=== PATIENT | female | born 1950 | race Caucasian/White ===

== ENCOUNTER 2019-07-31 11:02 | Inpatient (IN) | payer MEDICAID, MEDICARE ==
[~2019-07-31] VITALS: Ht 162.6 cm; Wt 60.5 kg
[2019-07-31] MEDS ORDERED: KETOROLAC TROMETH 15 mg/ml 1ML VL IV ONE (11:15)
[2019-07-31] MEDS ORDERED: ONDANSETRON HCL 4 MG/2 ML VIAL IV ONE (11:15)
[2019-07-31 12:04] LABS: Basophils # (auto) 0.1 10 ^3/uL (0-0.2); Basophils % (auto) 0.9 % (0.0-2.0); Eosinophils # (auto) 0 10 ^3/uL (0-0.8); Eosinophils % (auto) 0.3 % (0.0-7.0); Hematocrit 44.7 % (36.0-46.0); Hemoglobin 15.5 g/dL (12.2-16.2); Lymphocytes # (auto) 1.6 10 ^3/uL (0.4-5.4); Lymphocytes % (auto) 17.3 % (10.0-50.0); Mean Corpuscular Hemoglobin 30.7 pg (28.0-32.0); Mean Corpuscular Hgb Conc. 34.6 g/dL (32.0-36.0); Mean Corpuscular Volume 88.6 fL (80.0-100.0); Monocytes # (auto) 0.4 10 ^3/uL (0-1.3); Monocytes % (auto) 4.5 % (0.0-12.0); Nucleated Red Blood Cells % 0.1 %; Platelet Count (auto) 351 10^3/uL (140-450); Red Blood Cells 5.05 10^6/uL (4.0-5.20); Red Cell Distribution Width 12.9 % (11.8-14.3); White Blood Cell 9.1 10^3/uL (4.4-10.8)
[2019-07-31 12:24] LABS: Urine Bacteria FEW /hpf (None Seen); Urine Blood Negative /uL (Negative); Urine Specific Gravity 1.007 (1.001-1.035); Urine WBC 5 /hpf (0 - 5)
[2019-07-31 12:25] LABS: Calcium 9.5 mg/dL (8.5-10.1)
[2019-07-31 12:28] LABS: Bilirubin, Total 0.5 mg/dL (0.2-1.0)
[2019-07-31 12:35] LABS: Potassium 2.9 mmol/L (3.5-5.1)
[2019-07-31] MEDS ORDERED: metroNIDAZOLE 500MG/100ML 100 ML IV ONE (12:45)
[2019-07-31] MEDS ORDERED: POTASSIUM CHL 20MEQ/100ML 100 ML IV ONE (12:45)
[2019-07-31] MEDS ORDERED: cefTRIAXone 1GM/50ML D5W 50 ML IV ONE (13:45)
[2019-07-31] MEDS ORDERED: NITROGLYCERIN 0.4 MG SL TAB SL PRN (13:45)
[2019-07-31] MEDS ORDERED: MORPHINE SULF INJ 2 MG/ML SYRINGE 1ML IV PRN (13:45)
[2019-07-31] MEDS ORDERED: chlordiazePOXIDE HCL 25 MG CAP PO PRN (14:15)
[2019-07-31] MEDS ORDERED: THIAMINE 100mg/ml INJ (200mg/2ml VIAL) IV ONE (14:15)
[2019-07-31] MEDS: metroNIDAZOLE 500MG/100ML 100 ML IV SCH ×2 (14:45→21:13)
--- NOTE | 2019-07-31 15:09 | NUR ---
Telemetry admit from ER HALEY DORSEY admitted to Telemetry unit after SBAR received. Alert and oriented x4, ambulates independently, family at bedside. Patient oriented to Kelsey Graham primary RN, unit, room, bed, and unit policies regarding patient care and visiting hours. Patient now on continuous telemetry monitoring, tele box # [[id number]]. Patient weighed by bedscale and encouraged to call if they need something. All questions and concerns addressed, patient verbalized understanding.
[2019-07-31] MEDS: chlordiazePOXIDE HCL 5 MG CAP PO SCH ×2 (18:11→23:31)
[2019-07-31] MEDS ORDERED: HYDR25TA4 PO (18:22)
[2019-07-31] MEDS ORDERED: ENAL2.5T PO (18:22)
[2019-07-31] MEDS ORDERED: PANT20TA59 PO (18:22)
--- NOTE | 2019-07-31 20:00 | NUR ---
Opening Shift Note Assumed care of patient, awake and alert. No S/S of distress/SOB or pain. Instructed on POC and to call for assist PRN, will continue to monitor for changes Q1hr and PRN.
--- NOTE | 2019-07-31 20:58 | NUR ---
PATIENT TRANSFERRED TO ROOM 293A.
[2019-07-31] MEDS: SOD CHL 0.9%/ KCL 40MEQ 1,000 ML IV SCH (21:13)
[2019-07-31] MEDS: FAMOTIDINE 20 MG TAB PO SCH (21:13)
[2019-07-31] MEDS: MORPHINE SULF INJ 2 MG/ML SYRINGE 1ML IV PRN (21:30)
[2019-07-31 22:00] VITALS: BP 148/87
[2019-08-01] MEDS: MORPHINE SULF INJ 2 MG/ML SYRINGE 1ML IV PRN ×2 (02:57→09:34)
[2019-08-01 05:00] VITALS: BP 130/85
[2019-08-01] MEDS: chlordiazePOXIDE HCL 5 MG CAP PO SCH ×4 (05:54→23:57)
[2019-08-01] MEDS: metroNIDAZOLE 500MG/100ML 100 ML IV SCH ×3 (05:54→21:35)
--- NOTE | 2019-08-01 08:00 | NUR ---
PATIENT RESTING IN BED COMFORTABLY. REPORTS PAIN AT A 3 IN HER ABDOMEN IN LLQ AT THIS TIME. PATIENT DENIES ANY N/V. UPDATED ON POC. ALL QUESTIONS ANSWERED. BED IN LOWEST LOCKED POSITION WITH CALL LIGHT WITHIN REACH.
[2019-08-01 09:00] VITALS: BP 139/92
[2019-08-01] MEDS: THIAMINE 100mg/ml INJ (200mg/2ml VIAL) IV SCH (09:33)
[2019-08-01] MEDS: FAMOTIDINE 20 MG TAB PO SCH ×2 (09:33→21:42)
[2019-08-01] MEDS: cefTRIAXone 1GM/50ML D5W 50 ML IV SCH (09:33)
[2019-08-01] MEDS: ENOXAPARIN SOD 40 MG/0.4 ML SYRINGE SC SCH (10:00)
[2019-08-01] MEDS: SOD CHL 0.9%/ KCL 40MEQ 1,000 ML IV SCH ×2 (10:12→19:45)
[2019-08-01 11:06] LABS: Basophils # (auto) 0.1 10 ^3/uL (0-0.2); Basophils % (auto) 1.2 % (0.0-2.0); Eosinophils # (auto) 0.2 10 ^3/uL (0-0.8); Eosinophils % (auto) 2.4 % (0.0-7.0); Hematocrit 40.3 % (36.0-46.0); Lymphocytes # (auto) 1.5 10 ^3/uL (0.4-5.4); Lymphocytes % (auto) 20.1 % (10.0-50.0); Mean Corpuscular Hemoglobin 31.1 pg (28.0-32.0); Mean Corpuscular Hgb Conc. 34.7 g/dL (32.0-36.0); Mean Corpuscular Volume 89.6 fL (80.0-100.0); Monocytes # (auto) 0.4 10 ^3/uL (0-1.3); Monocytes % (auto) 6.2 % (0.0-12.0); Neutrophils % (auto) 70.1 % (37.0-80.0); Platelet Count (auto) 292 10^3/uL (140-450); Red Cell Distribution Width 13.3 % (11.8-14.3); White Blood Cell 7.2 10^3/uL (4.4-10.8)
[2019-08-01 11:23] LABS: Calcium 8.9 mg/dL (8.5-10.1); Potassium 3.7 mmol/L (3.5-5.1)
[2019-08-01 11:29] LABS: Albumin 3.3 g/dL (3.4-5.0); BUN/Creatinine Ratio 10.9; Bilirubin, Total 0.4 mg/dL (0.2-1.0); Magnesium 2.5 mg/dL (1.6-2.6); Total Protein 6.9 g/dL (6.4-8.2)
[2019-08-01 13:00] VITALS: BP 151/86
[2019-08-01] MEDS: ALPRAZolam 0.25 MG TAB PO PRN (13:56)
[2019-08-01 17:00] VITALS: BP 134/89
--- NOTE | 2019-08-01 19:30 | NUR ---
Opening Shift Note Assumed care of patient, awake and alert, resting in bed. No S/S of distress/SOB or pain. Instructed on POC and to call for assist PRN, will continue to monitor for changes Q1hr and PRN. Bed is in lowest position, bed rails 2x, bed wheels locked. Call light and bedside table within reach.
--- NOTE | 2019-08-01 20:45 | NUR ---
Patient Home Medications Patients home medications were taken down to pharmacy. POM wristband placed on patient and educated to hop picker own medications upon discharge. Will notify morning shift nurse.
--- NOTE | 2019-08-01 21:05 | NUR ---
Called Hospitalist Called hospitalist regarding patients home blood pressure medications. Ordered to restart patient's home medications, orders executed.
[2019-08-01] MEDS: TEMAZEPAM 15 MG CAP PO PRN (21:43)
[2019-08-01 22:00] VITALS: BP 157/93
[2019-08-02] VITALS (7 sets, daily range): BP systolic 114–158; BP diastolic 70–98
[2019-08-02] MEDS: MORPHINE SULF INJ 2 MG/ML SYRINGE 1ML IV PRN ×2 (01:03→21:18)
--- NOTE | 2019-08-02 01:03 | NUR ---
Patient complains of pain Patient states pain level is a 7. Will medicate per MD order.
--- NOTE | 2019-08-02 01:33 | NUR ---
Pain reassessment Patient states pain level is a 2. Patient states she is comfortable. Will continue to monitor Q1 and PRN.
[2019-08-02] MEDS: metroNIDAZOLE 500MG/100ML 100 ML IV SCH ×3 (05:12→21:18)
[2019-08-02] MEDS: chlordiazePOXIDE HCL 5 MG CAP PO SCH ×3 (05:12→17:28)
[2019-08-02] MEDS: SOD CHL 0.9%/ KCL 40MEQ 1,000 ML IV SCH ×2 (05:13→15:45)
--- NOTE | 2019-08-02 07:15 | NUR ---
Opening Shift Note Assumed care of patient, awake and alert. No S/S of distress/SOB or pain. Instructed on POC and to call for assist PRN, will continue to monitor for changes Q1hr and PRN. Fall precautions in place per safety protocol.
--- NOTE | 2019-08-02 07:28 | NUR ---
Closing shift note Endorsed care to morning shift RN
[2019-08-02] MEDS ORDERED: ENALAPRIL 10 MG TAB PO SCH ×2 (10:00)
[2019-08-02] MEDS ORDERED: HYDROCHLOROTHIAZIDE 25 MG TAB PO SCH (10:00)
[2019-08-02] MEDS ORDERED: PANTOPRAZOLE 20 MG PO SCH (10:00)
[2019-08-02] MEDS: ENOXAPARIN SOD 40 MG/0.4 ML SYRINGE SC SCH (10:57)
[2019-08-02] MEDS: THIAMINE 100mg/ml INJ (200mg/2ml VIAL) IV SCH (10:58)
[2019-08-02] MEDS: cefTRIAXone 1GM/50ML D5W 50 ML IV SCH (10:59)
--- NOTE | 2019-08-02 12:00 | NUR ---
Patient BP 158/98 recheck was 156-89. Notified MD Perez regarding spike in BP, Received order for hydralazine PO 25 once. Orders read back and verified. Patient's BP reassessment was 168/116. MD Perez put in a one time order for vasotec, 5mg PO. Gave patient Vasotec and will reassess BP in an hour.
[2019-08-02] MEDS ORDERED: hydrALAZINE HCL 25 MG TAB PO ONE (13:00)
[2019-08-02] MEDS ORDERED: ENALAPRIL MALEATE 2.5 MG TAB PO ONE (14:00)
[2019-08-02] MEDS ORDERED: hydrALAZINE HCL 25 MG TAB PO PRN (14:00)
--- NOTE | 2019-08-02 15:20 | NUR ---
BP Reassessment BP reassessment was 169/97 HR 78. MD Perez notified , received one time order for metoprolol 5MG IV, Will carry out new orders and will cont to monitor patient.
[2019-08-02] MEDS ORDERED: METOPROLOL TARTRATE 1MG/1ML-5ML VIAL IV ONE (15:45)
--- NOTE | 2019-08-02 16:45 | NUR ---
Reassessed BP BP was reassessed and 151/96 HR 66. Patient is asymptomatic at this time. Will cont to monitor. No BP medication due at this time.
[2019-08-02] MEDS: ACETAMINOPHEN 500 MG TAB PO PRN (17:28)
--- NOTE | 2019-08-02 19:09 | NUR ---
Endorsed care to Night DEN Peña.
--- NOTE | 2019-08-02 19:25 | NUR ---
Opening Shift Note Assumed care of patient, awake and alert, resting in bed. Family at bedside. No S/S of distress/SOB or pain. Instructed on POC and to call for assist PRN, will continue to monitor for changes Q1hr and PRN. Bed is in lowest position, bed rails 2x, bed wheels locked. Call light and bedside table are within reach.
--- NOTE | 2019-08-02 21:18 | NUR ---
Patient complains of pain Patient states pain level is a 5. Will medicate per MD orders. Will continue to monitor patient Q1 and PRN. Patient also given sleeping medication for comfort.
[2019-08-02] MEDS: TEMAZEPAM 15 MG CAP PO PRN (21:19)
--- NOTE | 2019-08-02 21:48 | NUR ---
Pain reassessment Patient is resting in bed comfortably. Patient states pain level is a 0. Will continue to monitor Q1 and PRN.
[2019-08-03] MEDS: chlordiazePOXIDE HCL 5 MG CAP PO SCH ×5 (00:21→23:51)
[2019-08-03] MEDS: SOD CHL 0.9%/ KCL 40MEQ 1,000 ML IV SCH ×2 (01:45→11:45)
[2019-08-03] MEDS: MORPHINE SULF INJ 2 MG/ML SYRINGE 1ML IV PRN ×2 (03:32→08:09)
--- NOTE | 2019-08-03 03:32 | NUR ---
Patient complains of pain Patient states pain level is 8. Will medicate per MD order. Will monitor Q1 and PRN.
--- NOTE | 2019-08-03 04:02 | NUR ---
Patient pain reassessment Patient states pain level is a 7. Will give patient some hot packs to manage pain. Will reassess pain level. If pain is not resolved will notify MD for an alternative pain medication.
[2019-08-03 05:00] VITALS: BP 153/92
[2019-08-03] MEDS: metroNIDAZOLE 500MG/100ML 100 ML IV SCH ×3 (05:06→21:51)
[2019-08-03 05:56] VITALS: BP 145/88
--- NOTE | 2019-08-03 07:19 | NUR ---
Closing shift note Endorsed care to Keren rivera RN
[2019-08-03] MEDS: PROMETHAZINE HCL 25 MG/ML 1ML IV PRN (08:10)
[2019-08-03 09:00] VITALS: BP 138/88
[2019-08-03] MEDS: cefTRIAXone 1GM/50ML D5W 50 ML IV SCH (09:41)
[2019-08-03] MEDS: ENOXAPARIN SOD 40 MG/0.4 ML SYRINGE SC SCH (09:42)
[2019-08-03] MEDS: THIAMINE 100mg/ml INJ (200mg/2ml VIAL) IV SCH (09:42)
[2019-08-03] MEDS: PANTOPRAZOLE 40 MG TAB PO SCH (09:42)
[2019-08-03] MEDS: ENALAPRIL MALEATE 10 MG TAB PO SCH (09:43)
[2019-08-03] MEDS ORDERED: HCTZ 25 MG TAB PO SCH (10:00)
[2019-08-03] MEDS ORDERED: NIFEdipine ER 30 MG TAB PO ONE (12:45)
[2019-08-03 13:00] VITALS: BP 145/104
[2019-08-03] MEDS: ACETAMINOPHEN 500 MG TAB PO PRN (15:49)
[2019-08-03 16:41] VITALS: BP 144/91
--- NOTE | 2019-08-03 19:14 | NUR ---
Endorsed care to night DEN Villarreal. Patient is resting in bed, no distress, sob, or pain noted at this time. Addendum: 08/03/19 at 1917 by CHUCK GALVEZ RN RN Adebayo Peña
--- NOTE | 2019-08-03 19:20 | NUR ---
Opening Shift Note Assumed care of patient, awake and alert, resting in bed. No S/S of distress/SOB. Patient complains of anxiety and insomnia. Will medicate per MD order. Instructed on POC and to call for assist PRN, will continue to monitor for changes Q1hr and PRN. Bed is in lowest position, bed rails 2x, bed wheels locked. Call light and bedside table are within reach.
[2019-08-03] MEDS: ALPRAZolam 0.25 MG TAB PO PRN (21:51)
[2019-08-03] MEDS: TEMAZEPAM 15 MG CAP PO PRN (21:52)
[2019-08-03] MEDS ORDERED: HYDROmorphone HCL 2 MG/ML VL IV ONE (22:15)
--- NOTE | 2019-08-03 22:15 | NUR ---
Called hospitalist Patient has unrelieved pain with current pain medications. Called to order an alternative pain medication. One time order received for 0.5mg Dilaudid. Will reassess patient and monitor Q1 and PRN.
--- NOTE | 2019-08-03 22:33 | NUR ---
Medicated for pain Patient states pain level is 8. Medicated per MD one time order. Will continue to monitor Q1 and PRN.
[2019-08-03 23:00] VITALS: BP 126/89
--- NOTE | 2019-08-03 23:03 | NUR ---
Pain reassessment Patient states pain level is 6. Patient states pain is tolerable. Patient resting in bed comfortably. Will continue to monitor q1 and PRN.
[2019-08-04 05:04] VITALS: BP 118/81
[2019-08-04] MEDS: metroNIDAZOLE 500MG/100ML 100 ML IV SCH ×3 (05:39→21:39)
[2019-08-04] MEDS: chlordiazePOXIDE HCL 5 MG CAP PO SCH ×3 (05:40→18:01)
[2019-08-04] MEDS: MORPHINE SULF INJ 2 MG/ML SYRINGE 1ML IV PRN (05:54)
[2019-08-04 07:01] LABS: BUN/Creatinine Ratio 9.1; Calcium 9.1 mg/dL (8.5-10.1)
[2019-08-04 07:44] LABS: Potassium 2.8 mmol/L (3.5-5.1)
--- NOTE | 2019-08-04 07:45 | NUR ---
CRITICAL POTASSIUM RECEIVED CALL FROM LAB REGARDING A CRITICAL POTASSIUM OF 2.7.
--- NOTE | 2019-08-04 07:50 | NUR ---
PAGED DR COSBY PAGED FOR ORDERS REGARDING CRITICAL POTASSIUM LEVEL. AWAITING CALL BACK.
--- NOTE | 2019-08-04 08:00 | NUR ---
OPENING SHIFT NOTE ASSUMED CARE OF PATIENT AWAKE AND ALERT. NO S.S OF DISTRESS NOTED OR COMPLAINTS OF PAIN. PATIENT UPDATED ON POC FOR THE DAY AND ALL QUESTIONS ANSWERED. BED IS IN LOWEST, LOCKED POSITION WITH SIDE RAILS UPX2 AND CALL LIGHT WITHIN REACH. WILL CONTINUE TO MONITOR Q1H AND PRN.
[2019-08-04 09:00] VITALS: BP 120/84
[2019-08-04] MEDS: cefTRIAXone 1GM/50ML D5W 50 ML IV SCH (10:26)
[2019-08-04] MEDS: HCTZ 25 MG TAB PO SCH (10:27)
[2019-08-04] MEDS: THIAMINE 100mg/ml INJ (200mg/2ml VIAL) IV SCH (10:27)
[2019-08-04] MEDS: PANTOPRAZOLE 40 MG TAB PO SCH (10:27)
[2019-08-04] MEDS: ENALAPRIL MALEATE 10 MG TAB PO SCH (10:27)
[2019-08-04] MEDS: ENOXAPARIN SOD 40 MG/0.4 ML SYRINGE SC SCH (10:28)
[2019-08-04] MEDS: PROMETHAZINE HCL 25 MG/ML 1ML IV PRN (10:30)
[2019-08-04] MEDS ORDERED: POTASSIUM CHLORIDE 40 MEQ, LIDOCAINE 1% (LOCAL ANESTH.) 4 ML in SODIUM CHL 0.9% 100 ML IV ONE (10:45)
[2019-08-04] MEDS ORDERED: POTASSIUM EFFERVESENT TAB 25 MEQ PO ONE (10:45)
--- NOTE | 2019-08-04 11:30 | NUR ---
CHOICE CASE MANAGEMENT RECEIVED CALL FROM CHOICE CASE MANAGEMENT REGARDING PATIENT'S ACCURATE ADDRESS[place] [id number] [facility] [id number]. THEY ARE WORKING ON GETTING THE PATIENT HOME HEALTH FOR A WALKER, BEDSIDE COMMODE, PHYSICAL THERAPY, AND SAFETY EVAL. PATIENT IS IN AGREEMENT. Addendum: 08/04/19 at 1232 by Zakia Mortensen RN THIS NOTE DOES NOT PERTAIN TO THIS PATIENT. PLEASE DISREGARD
--- NOTE | 2019-08-04 12:50 | NUR ---
NAUSEA/VOMITING PATIENT HAD HER SECOND BOUT OF VOMITING. SHE IS NOT TOLERATING HER DIET. INFORMED DR COSBY OF THIS FACT, NEW ORDER RECEIVED. WILL CARRY OUT AND CONTINUE TO MONITOR.
[2019-08-04 13:00] VITALS: BP 137/84
--- NOTE | 2019-08-04 13:59 | NUR ---
NUTRITION ASSESSMENT NOTES Please refer to link notes of nutrition screen form filed under the intervention section of the plan of care for further details. Est. Energy Needs: 6488-7107 kcal ( 25-30 kcal/kg BW). Est. Protein Needs: 61-73 gms/day ( 1.0-1.2 gms/kg BW). Will continue to monitor pertinent labs and reassess nutrient need prn Addendum: 08/04/19 at [address] Amended: Links added.
--- NOTE | 2019-08-04 14:40 | NUR ---
AT BEDSIDE DR WRIGHT AT BEDSIDE TO EVALUATE PATIENT.
[2019-08-04 17:00] VITALS: BP 133/94
--- NOTE | 2019-08-04 19:35 | NUR ---
Opening Shift Note Assumed care of patient, awake, alert and oriented x4, even and unlabored respirations, no S/S of distress/SOB or pain, and patient able to turn independently. Bed in lowest locked position, side rails up x2, and call light within reach. Instructed on POC and to call for assist PRN, will continue to monitor for changes Q1hr and PRN.
[2019-08-04] MEDS: ALPRAZolam 0.25 MG TAB PO PRN (21:38)
[2019-08-04] MEDS: TEMAZEPAM 15 MG CAP PO PRN (21:39)
[2019-08-04 21:57] VITALS: BP 132/89
[2019-08-05] MEDS: chlordiazePOXIDE HCL 5 MG CAP PO SCH ×3 (00:25→11:56)
[2019-08-05 04:57] VITALS: BP 119/70
[2019-08-05 06:05] LABS: Basophils # (auto) 0.1 10 ^3/uL (0-0.2); Eosinophils # (auto) 0.2 10 ^3/uL (0-0.8); Eosinophils % (auto) 3.2 % (0.0-7.0); Hematocrit 42.5 % (36.0-46.0); Hemoglobin 14.8 g/dL (12.2-16.2); Lymphocytes # (auto) 1.9 10 ^3/uL (0.4-5.4); Lymphocytes % (auto) 30.2 % (10.0-50.0); Mean Corpuscular Hemoglobin 30.9 pg (28.0-32.0); Mean Corpuscular Hgb Conc. 34.9 g/dL (32.0-36.0); Mean Corpuscular Volume 88.6 fL (80.0-100.0); Monocytes # (auto) 0.6 10 ^3/uL (0-1.3); Monocytes % (auto) 9.1 % (0.0-12.0); Neutrophils # (auto) 3.5 10 ^3/uL (1.6-8.6); Neutrophils % (auto) 55.5 % (37.0-80.0); Nucleated Red Blood Cells % 0.1 %; Platelet Count (auto) 322 10^3/uL (140-450); Red Cell Distribution Width 12.9 % (11.8-14.3); White Blood Cell 6.3 10^3/uL (4.4-10.8)
[2019-08-05] MEDS: metroNIDAZOLE 500MG/100ML 100 ML IV SCH (06:15)
[2019-08-05 06:16] LABS: INR 1.11 (0.9-1.15); Partial Thromboplastin Time 30.8 sec (23.64-32.05)
[2019-08-05 06:19] LABS: Albumin 3.1 g/dL (3.4-5.0); Calcium 8.9 mg/dL (8.5-10.1); Magnesium 2.1 mg/dL (1.6-2.6); Potassium 3.1 mmol/L (3.5-5.1)
[2019-08-05 06:21] LABS: BUN/Creatinine Ratio 9.6; Bilirubin, Total 0.4 mg/dL (0.2-1.0); Total Protein 6.6 g/dL (6.4-8.2)
--- NOTE | 2019-08-05 07:30 | NUR ---
RECEIVED REPORT FROM NIGHT NURSE. PATIENT RESTING IN BED, NO DISTRESS NOTED. WILL CONTINUE TO MONITOR.
[2019-08-05 09:00] VITALS: BP 126/84
[2019-08-05] MEDS: ENOXAPARIN SOD 40 MG/0.4 ML SYRINGE SC SCH (10:00)
[2019-08-05] MEDS ORDERED: POTASSIUM CHLORIDE 40 MEQ, LIDOCAINE 1% (LOCAL ANESTH.) 4 ML in SODIUM CHL 0.9% 100 ML IV ONE (10:15)
[2019-08-05] MEDS ORDERED: POTASSIUM CHL 20 Meq TABLET PO ONE (10:15)
[2019-08-05] MEDS: cefTRIAXone 1GM/50ML D5W 50 ML IV SCH (10:22)
[2019-08-05] MEDS: THIAMINE 100mg/ml INJ (200mg/2ml VIAL) IV SCH (10:23)
[2019-08-05] MEDS: PANTOPRAZOLE 40 MG TAB PO SCH (10:24)
[2019-08-05] MEDS: ENALAPRIL MALEATE 10 MG TAB PO SCH (10:24)
[2019-08-05] MEDS: HCTZ 25 MG TAB PO SCH (10:24)
[2019-08-05] MEDS: ALPRAZolam 0.25 MG TAB PO PRN (10:26)
[2019-08-05 13:00] VITALS: BP 134/94
[2019-08-05] MEDS ORDERED: metroNIDAZOLE 500 MG TAB PO SCH (14:00)
[2019-08-05 17:00] VITALS: BP 137/84
--- NOTE | 2019-08-05 18:25 | NUR ---
Discharge instructions given as ordered. Encourage to follow up with PMD as instructed. All questions and concerns addressed. Patient verbalized understanding. Medication reconciliation form completed and copy given to patient. Home medications held in Pharmacy returned to patient. IV removed with catheter intact, pressure dressing applied. Telemetry unit returned to ICU. Patient taken to vehicle via wheelchair with all personal belongings, accompanied by staff and family member. No distress noted at time of departure.
== END 2019-08-05 18:15 | disposition home or self-care (01) | DRG 392 ==
LOC: ER 11:02 → TELE 11:03 → TELE-WESTW 15:11
PROVIDERS: ADMIT Internal Medicine; ATTEND Internal Medicine
DX: K57.92 Diverticulitis of intestine, part unspecified, without perforation or abscess without bleeding (principal); N39.0 Urinary tract infection, site not specified; E87.6 Hypokalemia; I49.3 Ventricular premature depolarization; N20.0 Calculus of kidney; K21.9 Gastro-esophageal reflux disease without esophagitis; F12.90 Cannabis use, unspecified, uncomplicated; I10 Essential (primary) hypertension
CPT/HCPCS: 36415; 74176; 80048; 80053; 81001; 83690; 83735; 84132; 85025; 85610; 85730; 87086; 96361; 96365; 96375; G0378; J0696; J2001; J2405; J3480; J3490

== ENCOUNTER 2019-10-24 09:32 | Day surgery (SDC) | payer MEDICARE ==
[2019-10-22 14:22] LABS: Basophils # (auto) 0.1 10 ^3/uL (0-0.2); Eosinophils # (auto) 0.1 10 ^3/uL (0-0.8); Eosinophils % (auto) 1.5 % (0.0-7.0); Hematocrit 40.1 % (36.0-46.0); Hemoglobin 13.6 g/dL (12.2-16.2); Lymphocytes # (auto) 1.4 10 ^3/uL (0.4-5.4); Lymphocytes % (auto) 22.6 % (10.0-50.0); Mean Corpuscular Hemoglobin 30.4 pg (28.0-32.0); Mean Corpuscular Hgb Conc. 33.9 g/dL (32.0-36.0); Mean Corpuscular Volume 89.8 fL (80.0-100.0); Monocytes # (auto) 0.3 10 ^3/uL (0-1.3); Monocytes % (auto) 5.6 % (0.0-12.0); Neutrophils # (auto) 4.3 10 ^3/uL (1.6-8.6); Neutrophils % (auto) 69.3 % (37.0-80.0); Nucleated Red Blood Cells % 0.1 %; Platelet Count (auto) 380 10^3/uL (140-450); Red Blood Cells 4.46 10^6/uL (4.0-5.20); Red Cell Distribution Width 14.4 % (11.8-14.3); White Blood Cell 6.2 10^3/uL (4.4-10.8)
[2019-10-22 14:39] LABS: INR 0.98 (0.9-1.15); Partial Thromboplastin Time 28.8 sec (23.64-32.05)
[~2019-10-24] VITALS: Ht 162.6 cm; Wt 50.8 kg
[~2019-10-24 09:32] MED LIST: ENAL10TA12 PO; HYDR25TA4 PO; PANT20TA59 PO
[2019-10-24] MEDS ORDERED: SODIUM CHLORIDE LOCK 10 ML ONE (10:30)
[2019-10-24] MEDS: fentaNYL CITRATE 100 MCG/2 ML VL ONE ×5 (12:53→13:06)
[2019-10-24] MEDS: MIDAZOLAM HCL 5 MG/ML-1ML VIAL ONE ×4 (12:53→13:02)
[2019-10-24] MEDS: diphenhdrAMINE HCL 50 MG/1 ML VL ONE ×2 (12:58→13:02)
[2019-10-24 13:50] VITALS: BP 142/83
== END 2019-10-24 14:01 | disposition home or self-care (01) ==
LOC: GI 09:32
PROVIDERS: ATTEND Internal Medicine Gastroenterology
DX: R10.32 Left lower quadrant pain (principal); D12.5 Benign neoplasm of sigmoid colon; K57.30 Diverticulosis of large intestine without perforation or abscess without bleeding; K64.8 Other hemorrhoids; Z98.890 Other specified postprocedural states; Z79.899 Other long term (current) drug therapy; Z11.59 Encounter for screening for other viral diseases
CPT/HCPCS: 36415; 45380; 85025; 85610; 85730; 88305; J1200; J2250; J3010; J7030; U0003; 99152; 99153

== ENCOUNTER 2019-11-09 19:54 | Emergency (ER) | payer MEDICARE ==
[~2019-11-09] VITALS: Ht 162.6 cm; Wt 50.8 kg
[2019-11-09 21:40] LABS: Basophils # (auto) 0.1 10 ^3/uL (0-0.2); Basophils % (auto) 0.5 % (0.0-2.0); Eosinophils # (auto) 0.1 10 ^3/uL (0-0.8); Eosinophils % (auto) 0.6 % (0.0-7.0); Hematocrit 36.7 % (36.0-46.0); Hemoglobin 12.5 g/dL (12.2-16.2); Lymphocytes # (auto) 1.4 10 ^3/uL (0.4-5.4); Lymphocytes % (auto) 11.5 % (10.0-50.0); Mean Corpuscular Hemoglobin 31.1 pg (28.0-32.0); Mean Corpuscular Volume 91.5 fL (80.0-100.0); Monocytes # (auto) 0.8 10 ^3/uL (0-1.3); Monocytes % (auto) 6.1 % (0.0-12.0); Neutrophils # (auto) 10.1 10 ^3/uL (1.6-8.6); Neutrophils % (auto) 81.3 % (37.0-80.0); Platelet Count (auto) 417 10^3/uL (140-450); Red Blood Cells 4.01 10^6/uL (4.0-5.20); Red Cell Distribution Width 14.4 % (11.8-14.3); White Blood Cell 12.4 10^3/uL (4.4-10.8)
[2019-11-09 21:57] LABS: Albumin 3.8 g/dL (3.4-5.0); Calcium 9.6 mg/dL (8.5-10.1); Potassium 3.4 mmol/L (3.5-5.1)
[2019-11-09 22:01] LABS: BUN/Creatinine Ratio 13.3; Total Protein 8.2 g/dL (6.4-8.2)
[2019-11-09] MEDS ORDERED: cefTRIAXone 1GM/50ML D5W 50 ML IV ONE (23:15)
[2019-11-09] MEDS ORDERED: SODIUM CHLORIDE 0.9% 1,000 ML IV ONE (23:15)
[2019-11-09] MEDS ORDERED: metroNIDAZOLE 500MG/100ML 100 ML IV ONE (23:15)
[2019-11-09] MEDS ORDERED: ONDANSETRON HCL 4 MG/2 ML VIAL IV ONE (23:30)
[2019-11-09] MEDS ORDERED: MORPHINE SULFATE 4 MG/ML SYR/VIAL IV ONE (23:30)
[2019-11-09] MEDS ORDERED: MAGNESIUM CITRATE SOLUTION 300 ML BTL PO ONE (23:30)
[2019-11-10 01:52] VITALS: BP 145/74
== END 2019-11-10 01:58 | disposition home or self-care (01) ==
LOC: ER 20:07
DX: K57.32 Diverticulitis of large intestine without perforation or abscess without bleeding (principal); K59.00 Constipation, unspecified; K21.9 Gastro-esophageal reflux disease without esophagitis; I10 Essential (primary) hypertension
CPT/HCPCS: 36415; 74176; 80053; 82150; 83690; 85025; 93005; 96365; 96366; 96368; 96375

== ENCOUNTER → 2020-01-09 | Outpatient (CLI) | payer MEDICARE ==
[2020-01-09 07:36] LABS: Basophils # (auto) 0.1 10 ^3/uL (0-0.2); Basophils % (auto) 2.2 % (0.0-2.0); Eosinophils # (auto) 0.1 10 ^3/uL (0-0.8); Hematocrit 40.2 % (36.0-46.0); Hemoglobin 13.6 g/dL (12.2-16.2); Lymphocytes # (auto) 1.3 10 ^3/uL (0.4-5.4); Lymphocytes % (auto) 26.4 % (10.0-50.0); Mean Corpuscular Hemoglobin 31.3 pg (28.0-32.0); Mean Corpuscular Hgb Conc. 33.8 g/dL (32.0-36.0); Mean Corpuscular Volume 92.6 fL (80.0-100.0); Monocytes # (auto) 0.3 10 ^3/uL (0-1.3); Monocytes % (auto) 6.9 % (0.0-12.0); Neutrophils # (auto) 3.1 10 ^3/uL (1.6-8.6); Neutrophils % (auto) 62.5 % (37.0-80.0); Nucleated Red Blood Cells % 0.1 %; Platelet Count (auto) 296 10^3/uL (140-450); Red Blood Cells 4.34 10^6/uL (4.0-5.20); Red Cell Distribution Width 13.8 % (11.8-14.3); White Blood Cell 4.9 10^3/uL (4.4-10.8)
[2020-01-09 08:40] LABS: Cholesterol 190 mg/dL (< 200); HDL Cholesterol 76 mg/dL (40-59); LDL Cholesterol 98 mg/dL (< 100); Triglycerides 133 mg/dL (< 150)
== END | disposition home or self-care (01) ==
LOC: LAB 07:13
PROVIDERS: ATTEND Internal Medicine
DX: I10 Essential (primary) hypertension (principal); Z79.899 Other long term (current) drug therapy
CPT/HCPCS: 36415; 80061; 83036; 85025

== ENCOUNTER → 2020-07-10 | Outpatient (CLI) | payer MEDICARE ==
[2020-07-10 13:28] LABS: BUN/Creatinine Ratio 15.3; Calcium 9.5 mg/dL (8.5-10.1); Potassium 4.1 mmol/L (3.5-5.1)
== END | disposition home or self-care (01) ==
LOC: LAB 08:16
PROVIDERS: ATTEND Internal Medicine
DX: I10 Essential (primary) hypertension (principal)
CPT/HCPCS: 36415; 80048

== ENCOUNTER → 2021-01-04 | Outpatient (CLI) | payer OTHER, MEDICARE | END | disposition home or self-care (01) | LOC: XY 09:03 | PROVIDERS: ATTEND Internal Medicine | DX: I70.203 Unspecified atherosclerosis of native arteries of extremities, bilateral legs (principal) | CPT/HCPCS: 93925 ==

== ENCOUNTER → 2021-09-27 | Outpatient (CLI) | payer OTHER ==
[2021-09-27 10:56] LABS: Cholesterol 232 mg/dL (< 200); HDL Cholesterol 83 mg/dL (40-59); LDL Cholesterol 122 mg/dL (< 100); Triglycerides 116 mg/dL (< 150)
== END | disposition home or self-care (01) ==
LOC: LAB 09:57
PROVIDERS: ATTEND Internal Medicine
DX: Z00.00 Encounter for general adult medical examination without abnormal findings (principal); I10 Essential (primary) hypertension; I73.9 Peripheral vascular disease, unspecified
CPT/HCPCS: 36415; 80061; 82607

== ENCOUNTER 2021-10-22 12:53 | Emergency (ER) | payer OTHER ==
[~2021-10-22] VITALS: Ht 162.6 cm; Wt 57.6 kg
[2021-10-22 12:57] VITALS: BP 142/79
[2021-10-22 13:44] LABS: Urine Bacteria FEW /hpf (None Seen); Urine Blood TRACE /uL (Negative); Urine Specific Gravity 1.008 (1.001-1.035); Urine WBC 6 /hpf (0 - 5)
[2021-10-22 14:45] LABS: Basophils # (auto) 0.1 10 ^3/uL (0-0.2); Eosinophils # (auto) 0 10 ^3/uL (0-0.8); Eosinophils % (auto) 0.4 % (0.0-7.0); Hematocrit 42.6 % (36.0-46.0); Lymphocytes # (auto) 1.8 10 ^3/uL (0.4-5.4); Lymphocytes % (auto) 17.3 % (10.0-50.0); Mean Corpuscular Hemoglobin 31.5 pg (28.0-32.0); Mean Corpuscular Hgb Conc. 35.3 g/dL (32.0-36.0); Mean Corpuscular Volume 89.2 fL (80.0-100.0); Monocytes # (auto) 0.5 10 ^3/uL (0-1.3); Monocytes % (auto) 4.6 % (0.0-12.0); Neutrophils # (auto) 7.8 10 ^3/uL (1.6-8.6); Neutrophils % (auto) 76.7 % (37.0-80.0); Red Blood Cells 4.77 10^6/uL (4.0-5.20); Red Cell Distribution Width 13.3 % (11.8-14.3); White Blood Cell 10.2 10^3/uL (4.4-10.8)
[2021-10-22 15:02] LABS: Albumin 4.2 g/dL (3.4-5.0); Calcium 9.3 mg/dL (8.5-10.1)
[2021-10-22 15:05] LABS: BUN/Creatinine Ratio 13.2; Bilirubin, Total 0.7 mg/dL (0.2-1.0); Total Protein 8.2 g/dL (6.4-8.2)
[2021-10-22 15:12] LABS: Potassium 2.8 mmol/L (3.5-5.1)
[2021-10-22] MEDS ORDERED: POTASSIUM EFFERVESENT TAB 25 MEQ PO ONE (15:30)
[2021-10-23] MEDS ORDERED: PERCOT PO (00:01)
[2021-10-23] MEDS ORDERED: ONDA-144 PO (00:01)
== END 2021-10-23 02:53 | disposition home or self-care (01) ==
LOC: ER 12:53
DX: K57.30 Diverticulosis of large intestine without perforation or abscess without bleeding (principal); I10 Essential (primary) hypertension
CPT/HCPCS: 36415; 71045; 74176; 80053; 81001; 83690; 84484; 85025; 93005

== ENCOUNTER → 2022-04-14 | Outpatient (CLI) | payer OTHER ==
[~2022-04-14] MED LIST changes: +ONDA-144 PO; +PERCOT PO
[2022-04-14 08:34] LABS: Basophils # (auto) 0.1 10 ^3/uL (0-0.2); Basophils % (auto) 1.4 % (0.0-2.0); Eosinophils # (auto) 0.1 10 ^3/uL (0-0.8); Eosinophils % (auto) 2.1 % (0.0-7.0); Hematocrit 40.5 % (36.0-46.0); Hemoglobin 13.6 g/dL (12.2-16.2); Lymphocytes # (auto) 1.5 10 ^3/uL (0.4-5.4); Lymphocytes % (auto) 29.5 % (10.0-50.0); Mean Corpuscular Hemoglobin 30.2 pg (28.0-32.0); Mean Corpuscular Hgb Conc. 33.6 g/dL (32.0-36.0); Mean Corpuscular Volume 89.7 fL (80.0-100.0); Monocytes # (auto) 0.5 10 ^3/uL (0-1.3); Monocytes % (auto) 9.3 % (0.0-12.0); Neutrophils # (auto) 2.9 10 ^3/uL (1.6-8.6); Neutrophils % (auto) 57.7 % (37.0-80.0); Nucleated Red Blood Cells % 0.1 %; Red Blood Cells 4.51 10^6/uL (4.0-5.20); Red Cell Distribution Width 12.7 % (11.8-14.3)
[2022-04-14 08:49] LABS: Urine Bacteria FEW /hpf (None Seen); Urine Blood Negative /uL (Negative); Urine Mucus FEW (None Seen); Urine Specific Gravity 1.016 (1.001-1.035); Urine WBC 165 /hpf (0 - 5)
[2022-04-14 09:02] LABS: Potassium 3.6 mmol/L (3.5-5.1)
[2022-04-14 09:12] LABS: Albumin 3.4 g/dL (3.4-5.0); BUN/Creatinine Ratio 21.5; Bilirubin, Total 0.4 mg/dL (0.2-1.0); Calcium 9.1 mg/dL (8.5-10.1)
== END | disposition home or self-care (01) ==
LOC: LAB 08:16
PROVIDERS: ATTEND Internal Medicine
DX: Z00.00 Encounter for general adult medical examination without abnormal findings (principal); E78.5 Hyperlipidemia, unspecified; J44.9 Chronic obstructive pulmonary disease, unspecified
CPT/HCPCS: 36415; 80053; 80061; 81001; 85025

== ENCOUNTER → 2022-07-06 | Outpatient (CLI) | payer OTHER ==
[2022-07-06 09:07] LABS: Basophils # (auto) 0 10 ^3/uL (0-0.2); Basophils % (auto) 1.2 % (0.0-2.0); Eosinophils # (auto) 0.1 10 ^3/uL (0-0.8); Eosinophils % (auto) 1.9 % (0.0-7.0); Hematocrit 41.2 % (36.0-46.0); Lymphocytes % (auto) 24.3 % (10.0-50.0); Mean Corpuscular Hemoglobin 31.2 pg (28.0-32.0); Mean Corpuscular Hgb Conc. 34.1 g/dL (32.0-36.0); Mean Corpuscular Volume 91.6 fL (80.0-100.0); Monocytes # (auto) 0.3 10 ^3/uL (0-1.3); Monocytes % (auto) 6.1 % (0.0-12.0); Neutrophils # (auto) 2.8 10 ^3/uL (1.6-8.6); Neutrophils % (auto) 66.5 % (37.0-80.0); Red Blood Cells 4.49 10^6/uL (4.0-5.20); Red Cell Distribution Width 13.6 % (11.8-14.3); White Blood Cell 4.3 10^3/uL (4.4-10.8)
== END | disposition home or self-care (01) ==
LOC: LAB 08:57
PROVIDERS: ATTEND Internal Medicine
DX: L03.114 Cellulitis of left upper limb (principal)
CPT/HCPCS: 36415; 85025; 85652

== ENCOUNTER → 2022-09-18 | Outpatient (CLI) | payer OTHER | END | disposition home or self-care (01) | LOC: LAB 13:58 | PROVIDERS: ATTEND Internal Medicine | DX: Z12.11 Encounter for screening for malignant neoplasm of colon (principal) | CPT/HCPCS: 82270 ==

== ENCOUNTER → 2023-01-08 | Outpatient (CLI) | payer OTHER ==
[~2023-01-08] MED LIST changes: -ENAL10TA12 PO; +ENAL1TAB46 PO
[2023-01-08 10:15] LABS: Cholesterol 230 mg/dL (< 200); HDL Cholesterol 79 mg/dL (40-59); LDL Cholesterol 123 mg/dL (< 100); Triglycerides 124 mg/dL (< 150)
== END | disposition home or self-care (01) ==
LOC: LAB 09:24
PROVIDERS: ATTEND Internal Medicine
DX: E78.5 Hyperlipidemia, unspecified (principal)
CPT/HCPCS: 36415; 80061

== ENCOUNTER → 2023-05-14 | Outpatient (CLI) | payer OTHER ==
[2023-05-14 10:37] LABS: Cholesterol 240 mg/dL (< 200); Triglycerides 114 mg/dL (< 150)
[2023-05-14 10:38] LABS: LDL Cholesterol 140 mg/dL (< 100)
[2023-05-14 10:40] LABS: HDL Cholesterol 86 mg/dL (40-59)
== END | disposition home or self-care (01) ==
LOC: LAB 09:09
PROVIDERS: ATTEND Internal Medicine
DX: I10 Essential (primary) hypertension (principal); E78.5 Hyperlipidemia, unspecified
CPT/HCPCS: 36415; 80061; 82306

== ENCOUNTER 2024-03-28 09:06 | Day surgery (SDC) | payer OTHER ==
[2024-03-26 14:00] LABS: Basophils # (auto) 0.1 10 ^3/uL (0-0.2); Basophils % (auto) 0.7 % (0.0-2.0); Eosinophils # (auto) 0 10 ^3/uL (0-0.8); Eosinophils % (auto) 0.4 % (0.0-7.0); Hematocrit 38.3 % (36.0-46.0); Hemoglobin 13.3 g/dL (12.2-16.2); Lymphocytes # (auto) 1.8 10 ^3/uL (0.4-5.4); Lymphocytes % (auto) 22.2 % (10.0-50.0); Mean Corpuscular Hgb Conc. 34.6 g/dL (32.0-36.0); Mean Corpuscular Volume 92.5 fL (80.0-100.0); Monocytes # (auto) 0.3 10 ^3/uL (0-1.3); Monocytes % (auto) 4.2 % (0.0-12.0); Neutrophils # (auto) 5.9 10 ^3/uL (1.6-8.6); Neutrophils % (auto) 72.5 % (37.0-80.0); Platelet Count (auto) 276 10^3/uL (140-450); Red Blood Cells 4.14 10^6/uL (4.0-5.20); White Blood Cell 8.1 10^3/uL (4.4-10.8)
[2024-03-26 14:17] LABS: INR 1.02 (0.9-1.15); Partial Thromboplastin Time 27.9 SEC (24.5-34.5); Prothrombin Time 10.8 sec (9.3-11.8)
[2024-03-26 14:49] LABS: Alanine Aminotransferase 12 U/L (7-40); Albumin 4.3 g/dL (3.2-4.8); Alkaline Phosphatase 54 U/L (46-116); Anion Gap 6 (5-15); Aspartate Aminotransferase 15 U/L (13-40); BUN/Creatinine Ratio 16.4 (10.0-20.0); Bilirubin, Total 0.7 mg/dL (0.2-1.0); Blood Urea Nitrogen 12 mg/dL (9-23); Calcium 11.1 mg/dL (8.7-10.4); Carbon Dioxide 31 mmol/L (20-31); Chloride 104 mmol/L (98-107); Glucose 88 mg/dL (74-106); Potassium 3.7 mmol/L (3.5-5.1); Sodium 141 mmol/L (136-145); Total Protein 7.1 g/dL (5.7-8.2)
[~2024-03-28] VITALS: Ht 162.6 cm; Wt 54.4 kg
[~2024-03-28 09:06] MED LIST changes: +DICY-89 PO; -ONDA-144 PO; -PERCOT PO; +TEMA30CA PO
[2024-03-28] MEDS ORDERED: SODIUM CHLORIDE LOCK 10 ML ONE (09:17)
[2024-03-28] MEDS: LIDOCAINE VISCOUS 2% 15ML UD ONE (12:05)
[2024-03-28] MEDS: MIDAZOLAM HCL 5 MG/ML-1ML VIAL ONE (12:07)
[2024-03-28] MEDS: diphenhdrAMINE HCL 50 MG/1 ML VL ONE (12:07)
[2024-03-28] MEDS: fentaNYL CITRATE 100 MCG/2 ML VL ONE (12:07)
[2024-03-28 12:24] VITALS: PULSE 60; RESP 18; O2SAT 100
[2024-03-28 13:09] VITALS: BP 127/71; PULSE 58; RESP 12; O2SAT 96
--- NOTE | 2024-03-28 16:34 | DVHOP2 ---
Operative Report DATE OF OPERATION: 03/28/24 PROCEDURE: Upper Endoscopy with biopsy. PREOPERATIVE INDICATION: The patient is a 73 -year-old female undergoing endoscopy for GERD and dyspepsia POSTOPERATIVE DIAGNOSES: 1. Patient had a 2-3 cm sliding-type hiatal hernia with short-segment extension of columnar epithelium into the distal esophagus from which biopsies were obtained to rule out Guzman's 2. Mild gastritis otherwise normal examination up to the 2nd and 3rd part of the duodenum PROCEDURE PERFORMED BY: Matt Winters GI NURSE: Beth SCOPE: Olympus videoendoscope. ASA CLASS: PREOPERATIVE MEDICATIONS: Versed 5 mg, Fentanyl 100 mcg, Benadryl 50 mg I administered moderate sedation throughout this _12_ minutes procedure. An independent trained observer pushed medications at my direction, and monitored the patient's level of consciousness and physiological status throughout. PROCEDURE IN DETAIL: After obtaining an informed consent, the patient was placed on left lateral decubitus position. The patient was then sedated with the above medications. A bite block was placed between her teeth. The endoscope was then passed through the oropharynx, into the esophagus, and through the stomach and pylorus up to the second and third part of the duodenum. The endoscope was then withdrawn. The 2nd and 3rd part of the duodenum and the duodenal bulb were normal. The pre-pyloric area and antrum showed mild gastritis. Duodenal and gastric biopsies were obtained. On retroflexion the fundus cardia and angularis were normal. The endoscope was then withdrawn into the distal esophagus where the patient had a 2-3 cm sliding-type hiatal hernia with short-segment extension of columnar epithelium into the distal esophagus for 2-3 cm from which biopsies were obtained to rule out Guzman's. The remaining distal and proximal esophagus and oropharynx were unremarkable The patient tolerated the procedure well without difficulty. COMPLICATIONS : None SPECIMENS: Duodenal biopsies Gastric biopsies GE junction biopsies DISPOSITION: Stable D/C to home PLAN: 1. Await for biopsy result 2. Will place pt on Protonix 40 mg p.o. daily 3. Resume GI soft diet advance as tolerated 4. Lifestyle and dietary modifications for GERD 5. Outpatient follow up with me in 4-6 weeks to review results and discuss further management MATT WINTERS MD Mar 28, 2024 16:34
== END 2024-03-28 13:20 | disposition home or self-care (01) ==
LOC: GI 09:06
PROVIDERS: ATTEND Internal Medicine Gastroenterology
DX: K21.9 Gastro-esophageal reflux disease without esophagitis (principal); K29.50 Unspecified chronic gastritis without bleeding; K44.9 Diaphragmatic hernia without obstruction or gangrene; I10 Essential (primary) hypertension; Z98.890 Other specified postprocedural states; Z82.49 Family history of ischemic heart disease and other diseases of the circulatory system; Z87.891 Personal history of nicotine dependence
CPT/HCPCS: 36415; 43239; 80053; 85025; 85610; 85730; 88305; 88312; 88342; J1200; J2250; J3010; J7030; 99152

== ENCOUNTER → 2024-05-02 | Outpatient (CLI) | payer OTHER | END | disposition home or self-care (01) | LOC: LAB 13:04 | PROVIDERS: ATTEND Internal Medicine | DX: Z12.11 Encounter for screening for malignant neoplasm of colon (principal); E78.5 Hyperlipidemia, unspecified; D72.819 Decreased white blood cell count, unspecified | CPT/HCPCS: 82270 ==

== ENCOUNTER → 2024-05-06 | Outpatient (CLI) | payer OTHER ==
[2024-05-06 11:49] LABS: LDL Cholesterol 98 mg/dL (< 100)
[2024-05-06 11:51] LABS: Triglycerides 50 mg/dL (< 150)
[2024-05-06 11:52] LABS: Cholesterol 215 mg/dL (< 200)
[2024-05-06 11:53] LABS: HDL Cholesterol 97 mg/dL (40-59)
== END | disposition home or self-care (01) ==
LOC: LAB 10:55
PROVIDERS: ATTEND Internal Medicine
DX: E78.5 Hyperlipidemia, unspecified (principal)
CPT/HCPCS: 36415; 80061; 82607

== ENCOUNTER → 2024-05-08 | Outpatient (CLI) | payer OTHER | END | disposition home or self-care (01) | LOC: LAB 08:55 | PROVIDERS: ATTEND Internal Medicine | DX: E83.52 Hypercalcemia (principal) | CPT/HCPCS: 36415; 82306; 82310 ==

== ENCOUNTER → 2024-11-24 | Outpatient (CLI) | payer OTHER ==
[2024-11-24 12:50] LABS: Basophils # (auto) 0.1 10 ^3/uL (0-0.2); Basophils % (auto) 1.1 % (0.0-2.0); Eosinophils # (auto) 0.1 10 ^3/uL (0-0.8); Eosinophils % (auto) 0.8 % (0.0-7.0); Hematocrit 40.7 % (36.0-46.0); Hemoglobin 14.1 g/dL (12.2-16.2); Lymphocytes # (auto) 1.2 10 ^3/uL (0.4-5.4); Lymphocytes % (auto) 18.1 % (10.0-50.0); Mean Corpuscular Hemoglobin 32.1 pg (28.0-32.0); Mean Corpuscular Hgb Conc. 34.8 g/dL (32.0-36.0); Mean Corpuscular Volume 92.3 fL (80.0-100.0); Monocytes # (auto) 0.4 10 ^3/uL (0-1.3); Monocytes % (auto) 5.4 % (0.0-12.0); Neutrophils % (auto) 74.6 % (37.0-80.0); Platelet Count (auto) 296 10^3/uL (140-450); Red Blood Cells 4.41 10^6/uL (4.0-5.20); Red Cell Distribution Width 12.9 % (11.8-14.3); White Blood Cell 6.7 10^3/uL (4.4-10.8)
[2024-11-24 13:15] LABS: Alanine Aminotransferase 10 U/L (7-40); Albumin 4.4 g/dL (3.2-4.8); Alkaline Phosphatase 71 U/L (46-116); Anion Gap 8 (5-15); Aspartate Aminotransferase 15 U/L (13-40); BUN/Creatinine Ratio 18.1 (10.0-20.0); Bilirubin, Total 0.6 mg/dL (0.2-1.0); Blood Urea Nitrogen 13 mg/dL (9-23); Carbon Dioxide 29 mmol/L (20-31); Chloride 104 mmol/L (98-107); Glucose 94 mg/dL (74-106); Potassium 3.7 mmol/L (3.5-5.1); Sodium 141 mmol/L (136-145)
[2024-11-24 13:17] LABS: Calcium 10.5 mg/dL (8.7-10.4)
== END | disposition home or self-care (01) ==
LOC: LAB 12:04
PROVIDERS: ATTEND Internal Medicine
DX: E83.52 Hypercalcemia (principal); J44.9 Chronic obstructive pulmonary disease, unspecified; K57.90 Diverticulosis of intestine, part unspecified, without perforation or abscess without bleeding
CPT/HCPCS: 36415; 80053; 82306; 83970; 85025

== ENCOUNTER 2024-12-16 13:34 | Inpatient (IN) | payer OTHER ==
[~2024-12-16] VITALS: Ht 162.6 cm; Wt 54.0 kg
--- NOTE | 2024-12-16 13:50 | ED.PDOC ---
GI ASSESSMENT HPI Comments 74 y/o F, with PMHx of diverticulitis presents to the ED for CC of abdominal pain. Patient states, she has been experiencing LLQ abdominal pain with associated symptoms of nausea, vomiting, and diarrhea x1day. Patient denies change in diet, fever, chills, fatigue, or weakness. No other associated symptoms, modifiers, recent injuries or sick contacts present at this time. Chief Complaint: Abdominal Pain Time Seen by MD: 13:45 Primary Care Provider: ALIYAH Reviewed Notes: Nurses Notes, Medications, Allergies Allergies: Coded Allergies: NO KNOWN ALLERGIES (Unverified , 03/26/24) Home Meds Reported Medications Dicyclomine Hcl (Dicyclomine Hcl) 10 Mg Cap, 10 MG PO QID for 30 Days, MG 03/26/24 Temazepam (Temazepam) 30 Mg Cap, 1 CAP PO QPM, #30 CAP 1 Refill 03/26/24 Enalapril Maleate (VASOTEC TABLET) 10 Mg Tb, 1 TAB PO DAILY, #30 TAB 5 Refills 10/22/19 Pantoprazole Sodium Sesquihydr (Pantoprazole Sodium Dr) 20 Mg Tab, 20 MG PO DAILY, TAB 07/31/19 Hydrochlorothiazide (Hydrochlorothiazide) 25 Mg Tab, 25 MG PO DAILY for 30 Days, MG 07/31/19 Information Source: Patient Mode of Arrival: Ambulatory Timing: Days Duration: Since onset Prehospital treatment: None Quality: None Vomitus: Watery Stool: Watery Severity: Moderate Recent: None Recent Hx of: None Pain Location: LLQ Modifying Factors: Nothing Associated sign and symptoms: Nausea, Vomiting, Diarrhea, Abdominal Pain Past Medical History PAST MEDICAL HISTORY: GERD, HTN, Kidney Stones Surgical History: Denies all surgeries [employer]OR History: Ovarian Cysts Family History Family History: Family hx of heart chanelle Social History Smoker: Non-Smoker Alcohol: Occasionally Drugs: Marijuana Lives In: Home Constitutional: denies: chills, diaphoresis, fatigue, fever, malaise, sweats, weakness, others EENTM: denies: blurred vision, double vision, ear bleeding, ear discharge, ear drainage, ear pain, ear ringing, eye pain, eye redness, hearing loss, mouth pain, mouth swelling, nasal discharge, nose bleeding, nose congestion, nose pain , photophobia, tearing, throat pain, throat swelling, voice changes, others Respiratory: denies: cough, hemoptysis, orthopnea, SOB at rest, shortness of breath, SOB with excertion, stridor, wheezing, others Cardiovascular: denies: chest pain, dizzy spells, diaphoresis, Dyspnea on exertion, edema, irregular heart beat, left arm pain, lightheadedness, palpitations, PND, syncope, others Gastrointestinal: reports: abdominal pain, diarrhea, nausea, vomiting; denies: abdomen distended, blood streaked bowels, constipated, dysphagia, difficulty swallowing, hematemesis, melena, poor appetite, poor fluid intake, rectal b leeding, rectal pain, others Genitourinary: denies: abnormal vagina bleeding, burning, dyspareunia, dysuria, flank pain, frequency, hematuria, incontinence, pain, , vagina discharge, urgency, others Neurological: denies: dizziness, fainting, headache, left sided numbness, left sided weakness, numbness, paresthesia, pre-existing deficit, right sided numbness, right sided weakness, seizure, speech problems, tingling, tremors, weakness, others Musculoskeletal: denies: back pain, gout, joint pain, joint swelling, muscle pain, muscle stiffness, neck pain, others Integumetry: denies: bruises, change in color, change in hair/nails, dryness, laceration, lesions, lumps, rash, wounds, others Allergic/Immunocompromised: denies: Difficulty Healing, Frequent Infections, Hives, Itching, others Hematologic/Lymphatic: denies: anemia, blood clots, easy bleeding, easy bruising, swollen glands, others Endocrine: denies: excessive hunger, excessive sweating, excessive thirst, excessive urination, flushing, intolerance to cold, intolerance to heat, unexplained weight gain, unexplained weight loss, others Psychiatric: denies: anxiety, bipolar disorder, depression, hopeless, panic disorder, schizophrenia, sleepless, suicidal, others All Other Systems: Reviewed and Negative Physical Exam General Appearance: Moderate Distress, Thin HEENT: Normal ENT Inspection, Pharynx Normal, TMs Normal Neck: Full Range of Motion, Non-Tender, Normal, Normal Inspection Respiratory: Chest Non-Tender, Lungs Clear, No Accessory Muscle Use, No Respiratory Distress, Normal Breath Sounds Cardiovascular: No Edema, No JVD, No Murmur, No Gallop, Normal Peripheral Pulses, Regular Rate/Rhythm Breast Exam: Deferred Gastrointestinal: Diffuse Genitalia: Deferred Pelvic: Deferred Rectal: Deferred Extremities: No calf tenderness, Normal capillary refill, Normal inspection, Normal range of motion, Non-tender, No pedal edema Musculoskeletal : Apperance: Normal Neurologic: Alert, 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 Was a procedure done?: No GI differential Dx Differential Diagnosis: Constipation, Diverticular disease, Esophagitis, Gastritis/PUD, Gastroenteritis X-Ray, Labs, Meds, VS Vital Signs Date Time Temp Pulse Resp B/P (MAP) Pulse Ox O2 Delivery O2 Flow Rate FiO2 12/16/24 14:24 106 18 129/98 12/16/24 13:50 106 12/16/24 13:46 106 12/16/24 13:45 98.1 118 20 113/92 (99) 98 98.1 Lab Test 12/16/24 15:52 12/16/24 14:18 Range/Units Sodium Level 143 136-145 mmol/L Potassium Level 2.7 L 3.5-5.1 mmol/L Chloride Level 104 98-107 mmol/L Carbon Dioxide Level 20 20-31 mmol/L Anion Gap 19 H 5-15 Blood Urea Nitrogen 12 9-23 mg/dL Creatinine 0.71 0.550-1.02 mg/dL Glomerular Filtration Rate Calc 90 >90 mL/min BUN/Creatinine Ratio 16.9 10.0-20.0 Serum Glucose 80 74-106 mg/dL Lactic Acid Level 1.2 2.1 *H 0.4-2.0 mmol/L Calcium Level 10.1 8.7-10.4 mg/dL White Blood Count 12.3 H 4.4-10.8 10^3/uL Red Blood Count 5.24 H 4.0-5.20 10^6/uL Hemoglobin 16.7 H 12.2-16.2 g/dL Hematocrit 48.2 H 36.0-46.0 % Mean Corpuscular Volume 91.8 80.0-100.0 fL Mean Corpuscular Hemoglobin 31.9 28.0-32.0 pg Mean Corpuscular Hemoglobin Concent 34.7 32.0-36.0 g/dL Red Cell Distribution Width 13.0 11.8-14.3 % Platelet Count 494 H 140-450 10^3/uL Mean Platelet Volume 7.4 6.9-10.8 fL Neutrophils (%) (Auto) 79.9 37.0-80.0 % Lymphocytes (%) (Auto) 13.4 10.0-50.0 % Monocytes (%) (Auto) 5.9 0.0-12.0 % Eosinophils (%) (Auto) 0.1 0.0-7.0 % Basophils (%) (Auto) 0.7 0.0-2.0 % Neutrophils # (Auto) 9.8 H 1.6-8.6 10 ^3/uL Lymphocytes # (Auto) 1.6 0.4-5.4 10 ^3/uL Monocytes # (Auto) 0.7 0-1.3 10 ^3/uL Eosinophils # (Auto) 0 0-0.8 10 ^3/uL Basophils # (Auto) 0.1 0-0.2 10 ^3/uL Nucleated Red Blood Cells 0.1 % Current Medications Medications (Trade) Dose Ordered Sig/Martin Route Start Time Stop Time Status Last Admin Ondansetron HCl (Zofran) 4 mg ONCE ONCE IV 12/16/24 13:45 12/16/24 13:47 DC 12/16/24 14:23 Sodium Chloride 1,000 ml @ 1,000 mls/hr Q1H ONCE IVB 12/16/24 13:45 12/16/24 14:44 DC 12/16/24 14:23 Morphine Sulfate 4 mg ONCE ONCE IV 12/16/24 13:45 12/16/24 13:47 DC 12/16/24 14:24 Ceftriaxone Sodium 50 ml @ 100 mls/hr ONCE ONCE IV 12/16/24 15:00 12/16/24 15:29 DC 12/16/24 16:17 Metronidazole 100 ml @ 100 mls/hr ONCE ONCE IV 12/16/24 15:00 12/16/24 15:59 DC 12/16/24 16:17 Pantoprazole Sodium (Protonix) 40 mg ONCE ONCE IV 12/16/24 15:45 12/16/24 16:02 DC 12/16/24 16:17 Sodium Chloride 500 ml @ 500 mls/hr Q1H ONCE IV 12/16/24 15:45 12/16/24 16:44 DC 12/16/24 16:[address] [address] Ph: [phone] DIAGNOSTIC IMAGING Diagnostic Imaging Report : [id number] Signed PATIENT: HALEY DORSEY ACCT: [id number] UNIT: [id number] : 1950 LOC: ER ROOM / BED: / AGE / SEX: 74 / F ADM STATUS: REG ER SERVICE 1346 ORDERING PHYSICIAN: GREY VALERO MD PROCEDURE(s): ABPL - CT AB PEL WO CON-NO ORAL OR IV REASON: diverticulitis ORDER NUMBER(s): [id number], ACCESSION NUMBER(s): [id number] Exam: CT CT AB PEL WO CON-NO ORAL OR IV History: diverticulitis Comparison Study: CT ABD PELVIS WO CONTRAST on DOS: 10/22/21 TECHNIQUE: Multidetector CT of the abdomen and pelvis without IV contrast. Axial, coronal and sagittal multiplanar reformats were obtained from the axial data set by the technologist. Radiation Dose Information: CT Dose: CTDI volume is 5.07 mGy. Dose-length product is mGy*cm FINDINGS: Bibasilar atelectasis. Partially visualized heart is normal in size. Trace anterior pericardial effusion. Calcified granulomas within the liver and spleen. Otherwise, liver, spleen, gallbladder, pancreas and adrenal glands are unremarkable. Punctate nonobstructing bilateral renal calculi. No hydronephrosis bilaterally. Ureters and urinary bladder are unremarkable. Uterus and adnexa unremarkable. Tiny hiatal hernia. Mild gastric wall thickening. The small bowel loops are unremarkable. Appendix is unremarkable. Diffuse colonic diverticulosis without diverticulitis. No evidence of intraperitoneal free air or free fluid. No evidence of aortic aneurysm. [id number] atherosclerotic calcification of the aorta and bilateral iliacs. Moderate to heavy atherosclerotic calcification at the origin of the right renal artery. The left renal arteries unremarkable. No significant lymphadenopathy. Tiny fat containing umbilical hernia. Sclerotic focus within the left iliac bone which may represent a bone island. Diffuse demineralization. No evidence of acute osseous abnormalities. IMPRESSION: Mild gastritis. Colonic diverticulosis without diverticulitis. Punctate nonobstructing bilateral renal calculi. Additional findings as above. ATED BY: KELSEY GANDHI DO DICTATED DATE/TIME: 12/16/241441 SIGNED BY: KELSEY GANDHI DO SIGNED DATE/TIME: 12/16/241441 CC: Patient alert. Complaining of abdominal pain. Vitals stable. Answering questions pain CT scan of the abdomen does show gastritis. Possible diverticulitis component. Possible sepsis. Establish intravenous access. Was given fluids. Explained to the patient. Continue to monitor. Time of 1ST Reevaluation: 14:15 Reevaluation 1ST: Unchanged Patient Education/Counseling: Diagnosis, Treatment Family Education/Counseling: No Family Present SEPSIS Sepsis Screen Physician Orders Urinalysis (12/16/24 13:45) Blood Culture (12/16/24 13:45) Ct Ab Pel Wo Con-No Oral Or Iv (12/16/24 13:46) Electrocardigram (12/16/24 13:48) Ceftriaxone 1gm/50ml D5w (Rocephin) (12/17/24 09:00) Metronidazole 500mg/100ml (Flagyl 500mg/ (12/16/24 22:00) Pantoprazole (Protonix) (12/17/24 10:00) Allergies (12/16/24 15:45) Code Status (12/16/24 15:45) Sodium Chloride 0.9% (12/16/24 15:45) Oxygen Per Hour (12/16/24 15:45) Hydrocodone-Acet 5/325mg Tab ([place] 5/32 (12/16/24 15:45) Ondansetron Hcl (Zofran) (12/16/24 15:45) Complete Blood Count (12/17/24 04:00) Comprehensive Metabolic Panel (12/17/24 04:00) Condition: Serious (12/16/24 15:45) Acetaminophen Tablet (Tylenol Tablet) (12/16/24 15:45) Clear Liq Diet (12/16/24 Dinner) Bedrest With Bathroom Privileg (12/16/24 15:45) Sequential Compression Device (12/16/24 ) Hydralazine Injection (Apresoline Inject (12/16/24 15:45) Vital Signs Date Time Temp Pulse Resp B/P (MAP) Pulse Ox O2 Delivery O2 Flow Rate FiO2 12/16/24 14:24 106 18 129/98 12/16/24 13:50 106 12/16/24 13:46 106 12/16/24 13:45 98.1 118 20 113/92 (99) 98 98.1 Laboratory Tests Test 12/16/24 14:18 12/16/24 15:52 Lactic Acid Level 2.1 mmol/L (0.4-2.0) *H 1.2 mmol/L (0.4-2.0) White Blood Count 12.3 10^3/uL (4.4-10.8) H Medications Medications Dose Ordered Sig/Martin Route Start Time Stop Time Status Last Admin Dose Admin Ceftriaxone Sodium 50 ml @ 100 mls/hr ONCE ONCE IV 12/16/24 15:00 12/16/24 15:29 DC 12/16/24 16:17 Metronidazole 100 ml @ 100 mls/hr ONCE ONCE IV 12/16/24 15:00 12/16/24 15:59 DC 12/16/24 16:17 Morphine Sulfate 4 mg ONCE ONCE IV 12/16/24 13:45 12/16/24 13:47 DC 12/16/24 14:24 Ondansetron HCl 4 mg ONCE ONCE IV 12/16/24 13:45 12/16/24 13:47 DC 12/16/24 14:23 Pantoprazole Sodium 40 mg ONCE ONCE IV 12/16/24 15:45 12/16/24 16:02 DC 12/16/24 16:17 Sodium Chloride 500 ml @ 500 mls/hr Q1H ONCE IV 12/16/24 15:45 12/16/24 16:44 DC 12/16/24 16:16 Sodium Chloride 1,000 ml @ 1,000 mls/hr Q1H ONCE IVB 12/16/24 13:45 12/16/24 14:44 DC 12/16/24 14:23 Departure 1 Departure Time of Disposition: 14:57 Impression: Primary Impression: Sepsis, unspecified organism Qualified Codes: A41.9 - Sepsis, unspecified organism Additional Impressions: Diverticulosis of colon without diverticulitis Gastritis Qualified Codes: K29.00 - Acute gastritis without bleeding Disposition: ADMITTED INPATIENT Admit to: Med Surg Condition: Guarded Critical Care Note Critical Care Time?: Yes (90 min-critical care time only) Stability Stability form required: No Heart Score Heart Score: Heart Score Response (Comments) Value History N/A 0 EKG N/A 0 Age N/A 0 Risk Factors N/A 0 Troponin N/A 0 Total 0 I personally scribed for GREY VALERO MD ([email or web address]) on 12/16/24 at 13:50. Electronically submitted by Verena Looney ([email or web address]). I personally scribed for GREY VALERO MD ([email or web address]) on 12/16/24 at 14:54. Electronically submitted by Verena Looney [email or web address]). GREY VALERO MD Dec 16, 2024 13:50
[2024-12-16] MEDS: SODIUM CHLORIDE 0.9% 1,000 ML IVB ONE (14:23)
[2024-12-16] MEDS: ONDANSETRON HCL 4 MG/2 ML VIAL IV ONE (14:23)
[2024-12-16] MEDS: MORPHINE SULFATE 4 MG/ML SYR/VIAL IV ONE (14:24)
[2024-12-16 14:35] LABS: Hematocrit 48.2 % (36.0-46.0); Hemoglobin 16.7 g/dL (12.2-16.2); Mean Corpuscular Hemoglobin 31.9 pg (28.0-32.0); Mean Corpuscular Volume 91.8 fL (80.0-100.0); Nucleated Red Blood Cells % 0.1 %
--- NOTE | 2024-12-16 14:45 | DVH ---
Exam: CT CT AB PEL WO CON-NO ORAL OR IV History: diverticulitis Comparison Study: CT ABD PELVIS WO CONTRAST on DOS: 10/22/21 TECHNIQUE: Multidetector CT of the abdomen and pelvis without IV contrast. Axial, coronal and sagitta l multiplanar reformats were obtained from the axial data set by the technologist. Radiation Dose Information: CT Dose: CTDI volume is 5.07 mGy. Dose-length product is mGy*cm FINDINGS: Bibasilar atelectasis. Partially visualized heart is normal in size. Trace anterior pericardial effu ricardo. Calcified granulomas within the liver and spleen. Otherwise, liver, spleen, gallbladder, pancreas and adrenal glands are unremarkable. Punctate nonobstructing bilateral renal calculi. No hydronephrosis bilaterally. Ureters and urinary b ladder are unremarkable. Uterus and adnexa unremarkable. Tiny hiatal hernia. Mild gastric wall thickening. The small bowel loops are unremarkable. Appendix is unremarkable. Diffuse colonic diverticulosis without diverticulitis. No evidence of intraperitoneal free air or free fluid. No evidence of aortic aneurysm. [id number] atherosclerotic calcification of the aorta and bilat eral iliacs. Moderate to heavy atherosclerotic calcification at the origin of the right renal artery. The left renal arteries unremarkable. No significant lymphadenopathy. Tiny fat containing umbilical hernia. Sclerotic focus within the left iliac bone which may represent a bone island. Diffuse demineralization. No evidence of acute osseous abnormalities. IMPRESSION: Mild gastritis. Colonic diverticulosis without diverticulitis. Punctate nonobstructing bilateral renal calculi. Additional findings as above.
[2024-12-16 14:51] LABS: Lactic Acid w/Reflex 2.1 mmol/L (0.4-2.0)
[2024-12-16] MEDS ORDERED: ONDANSETRON HCL 4 MG/2 ML VIAL IV PRN (15:45)
[2024-12-16] MEDS: SODIUM CHLORIDE 0.9% 1,000 ML IV SCH (15:45)
[2024-12-16] MEDS: SODIUM CHLORIDE 0.9% 500 ML IV ONE (16:16)
[2024-12-16] MEDS: PANTOPRAZOLE 40 MG/10 ML VIAL INJ IV ONE (16:17)
[2024-12-16] MEDS: cefTRIAXone 1GM/50ML D5W 50 ML IV ONE (16:17)
[2024-12-16 16:31] LABS: Chloride 104 mmol/L (98-107); Sodium 143 mmol/L (136-145)
[2024-12-16 16:32] LABS: Anion Gap 19 (5-15); Calcium 10.1 mg/dL (8.7-10.4); Carbon Dioxide 20 mmol/L (20-31)
[2024-12-16 16:33] LABS: Potassium 2.7 mmol/L (3.5-5.1)
[2024-12-16 16:37] LABS: BUN/Creatinine Ratio 16.9 (10.0-20.0); Blood Urea Nitrogen 12 mg/dL (9-23); Glucose 80 mg/dL (74-106)
--- NOTE | 2024-12-16 17:29 | DVHHP2 ---
History of Present Illness Reason for Visit: Acute abdominal pain History of Present Illness The patient is a 74-year-old female with past medical history of GERD, hypertension, and kidney stones who presented to [facility] ED with complaint of abdominal pain. Patient reports symptoms progressively get worse with left lower quadrant abdominal pain, rating 7/10 numeric scale, associated with nausea, vomiting, and diarrhea. Patient was seen and evaluated in the ED, laboratory data shows WBC 12.3, hemoglobin 16.7, hematocrit 48.2, platelets 494, sodium 143, potassium 2.7, BUN 12, creatinine 0.71, glucose 80, calcium 10.1, lactic acid 2.1 trending down to 1.2, blood pressure 129/98, heart rate 106, temperature 98.1 F, O2 saturation 98% on room air. Abdomen/pelvis CT revealing mild gastritis, colonic diverticulosis without diverticulitis, punctate nonobstructing bilateral renal calculi. Patient was started on IV antibiotic regimen Flagyl, please see medication orders section in the computer. On my assessment, patient denied chest pain, no dizziness, no headache, no shortness of breaths, no diarrhea, no nausea or vomiting at this moment, no fever, no chills. Patient was admitted for further evaluation and medical management. Past Medical History GERD, HTN, Kidney Stones Past Surgical History Denies all surgeries Family History Reviewed, noncontributory to the management of this case. Past Social History The patient lives at home, denies smoking, alcohol or illicit drugs abuse. Review of Systems Constitutional: No: Fever, Chills, Sweats, Weakness, Malaise, Other Eyes: No: Pain, Vision change, Conjunctivae inflammation, Eyelid inflammation, Other, Redness ENT: No: Ear pain, Ear discharge, Nose pain, Nose discharge, Nose congestion, Mouth pain, Mouth swelling, Throat pain, Throat swelling, Other Respiratory: No: Cough, Dry, Shortness of breath, SOB with excertion, Wheezing, Hemoptysis, Pleuritic Pain, Sputum, Wheezing, Other Cardiovascular: No: Chest Pain, Palpitations, Orthopnea, Paroxysmal Noc. Dys pnea, Edema, Lt Headedness, Other Gastrointestinal: Nausea, Vomiting, Abdominal Pain, Diarrhea; No: Constipation, Melena, Hematochezia, Other Genitourinary: No Dysuria, No Frequency, No Incontinence, No Hematuria, No Retention, No Other Musculoskeletal: No: other, neck pain, shoulder pain, arm pain, back pain, hand pain, leg pain, foot pain Skin: No: Rash, Lesions, Jaundice, Bruising, Other Neurological: No: Weakness, Numbness, Incoordination, Change in speech, C onfusion, Seizures, Other Allergies: Coded Allergies: NO KNOWN ALLERGIES (Unverified , 03/26/24) Medications Current Medications Medications Dose Ordered Sig/Martin Route Start Time Stop Time Status Last Admin Dose Admin Ceftriaxone Sodium 50 ml @ 100 mls/hr DAILY@09 IV 12/17/24 09:00 Metronidazole 100 ml @ 100 mls/hr Q8HR IV 12/16/24 22:00 Pantoprazole Sodium 40 mg DAILY IV 12/17/24 10:00 Sodium Chloride 1,000 ml @ 60 mls/hr [id number] IV 12/16/24 15:45 Acetaminophen/ Hydrocodone Bitart 1 tab Q4HP PRN PO 12/16/24 15:45 Ondansetron HCl 4 mg Q4HP PRN IV 12/16/24 15:45 Acetaminophen 650 mg Q6HP PRN PO 12/16/24 15:45 Hydralazine HCl 10 mg Q6HP PRN IV 12/16/24 15:45 Exam Vital Signs Vital Signs Date Time Temp Pulse Resp B/P (MAP) Pulse Ox O2 Delivery O2 Flow Rate FiO2 12/16/24 14:24 106 18 129/98 12/16/24 13:45 98.1 98 98.1 General Appearance: Alert, Oriented X3, Cooperative, No acute distress HEENT: Atraumatic, PERRLA, EOMI, Mucous membr. moist/pink Respiratory: Normal air movement Cardiovascular: Regular rate, Normal S1, Normal S2, No murmurs Abdominal: Normal bowel sounds, Soft, No tenderness, No hepatospenomegaly, No masses Extremities: No clubbing, No cyanosis, No edema, Normal pulses, No tenderness/swelling Skin: No rashes, No breakdown, No significant lesion Neuro: Normal gait, Normal speech, Strength at 5/5 X4 ext, Normal tone, Sensation intact, Cranial nerves 3-12 NL, Reflexes 2+ Psych/Mental Status: Mental status NL, Mood NL Labs/Xrays Labs Test 12/16/24 15:52 12/16/24 14:18 Range/Units Sodium Level 143 136-145 mmol/L Potassium Level 2.7 L 3.5-5.1 mmol/L Chloride Level 104 98-107 mmol/L Carbon Dioxide Level 20 20-31 mmol/L Anion Gap 19 H 5-15 Blood Urea Nitrogen 12 9-23 mg/dL Creatinine 0.71 0.550-1.02 mg/dL Glomerular Filtration Rate Calc 90 >90 mL/min BUN/Creatinine Ratio 16.9 10.0-20.0 Serum Glucose 80 74-106 mg/dL Lactic Acid Level 1.2 0.4-2.0 mmol/L Calcium Level 10.1 8.7-10.4 mg/dL White Blood Count 12.3 H 4.4-10.8 10^3/uL Red Blood Count 5.24 H 4.0-5.20 10^6/uL Hemoglobin 16.7 H 12.2-16.2 g/dL Hematocrit 48.2 H 36.0-46.0 % Mean Corpuscular Volume 91.8 80.0-100.0 fL Mean Corpuscular Hemoglobin 31.9 28.0-32.0 pg Mean Corpuscular Hemoglobin Concent 34.7 32.0-36.0 g/dL Red Cell Distribution Width 13.0 11.8-14.3 % Platelet Count 494 H 140-450 10^3/uL Mean Platelet Volume 7.4 6.9-10.8 fL Neutrophils (%) (Auto) 79.9 37.0-80.0 % Lymphocytes (%) (Auto) 13.4 10.0-50.0 % Monocytes (%) (Auto) 5.9 0.0-12.0 % Eosinophils (%) (Auto) 0.1 0.0-7.0 % Basophils (%) (Auto) 0.7 0.0-2.0 % Neutrophils # (Auto) 9.8 H 1.6-8.6 10 ^3/uL Lymphocytes # (Auto) 1.6 0.4-5.4 10 ^3/uL Monocytes # (Auto) 0.7 0-1.3 10 ^3/uL Eosinophils # (Auto) 0 0-0.8 10 ^3/uL Basophils # (Auto) 0.1 0-0.2 10 ^3/uL Nucleated Red Blood Cells 0.1 % PATIENT: HALEY DORSEY ACCT: [id number] UNIT: [id number] : 1950 LOC: ER ROOM / BED: / AGE / SEX: 74 / F ADM STATUS: REG ER SERVICE 1346 ORDERING PHYSICIAN: GREY VALERO MD PROCEDURE(s): ABPL - CT AB PEL WO CON-NO ORAL OR IV REASON: diverticulitis ORDER NUMBER(s): [id number], ACCESSION NUMBER(s): [id number] Exam: CT CT AB PEL WO CON-NO ORAL OR IV History: diverticulitis Comparison Study: CT ABD PELVIS WO CONTRAST on DOS: 10/22/21 TECHNIQUE: Multidetector CT of the abdomen and pelvis without IV contrast. Axial, coronal and sagittal multiplanar reformats were obtained from the axial data set by the technologist. Radiation Dose Information: CT Dose: CTDI volume is 5.07 mGy. Dose-length product is mGy*cm FINDINGS: Bibasilar atelectasis. Partially visualized heart is normal in size. Trace anterior pericardial effusion. Calcified granulomas within the liver and spleen. Otherwise, liver, spleen, gallbladder, pancreas and adrenal glands are unremarkable. Punctate nonobstructing bilateral renal calculi. No hydronephrosis bilaterally. Ureters and urinary bladder are unremarkable. Uterus and adnexa unremarkable. Tiny hiatal hernia. Mild gastric wall thickening. The small bowel loops are unremarkable. Appendix is unremarkable. Diffuse colonic diverticulosis without diverticulitis. No evidence of intraperitoneal free air or free fluid. No evidence of aortic aneurysm. [id number] atherosclerotic calcification of the aorta and bilateral iliacs. Moderate to heavy atherosclerotic calci fication at the origin of the right renal artery. The left renal arteries unremarkable. No significant lymphadenopathy. Tiny fat containing umbilical hernia. Sclerotic focus within the left iliac bone which may represent a bone island. Diffuse demineralization. No evidence of acute osseous abnormalities. IMPRESSION: Mild gastritis. Colonic diverticulosis without diverticulitis. Punctate nonobstructing bilateral renal calculi. Additional findings as above. SEPSIS Sepsis Screen Date sepsis recognized/suspect: Dec 16, 2024 Time Sepsis recognized/suspect: 1339 Recent Procedure: No On Antibiotic Therapy: Yes Respiratory Rate >20: No Heart Rate >90: Yes Temp<36 C (96.8 F) or >38.3 C: No SBP <90 or MAP <65 mmHG: No New Acute Mental Status Change: No Is the patient on CPAP, BIPAP,: No Physician Orders Urinalysis (12/16/24 13:45) Blood Culture (12/16/24 13:45) Ct Ab Pel Wo Con-No Oral Or Iv (12/16/24 13:46) Electrocardigram (12/16/24 13:48) Ceftriaxone 1gm/50ml D5w (Rocephin) (12/17/24 09:00) Metronidazole 500mg/100ml (Flagyl 500mg/ (12/16/24 22:00) Pantoprazole (Protonix) (12/17/24 10:00) Allergies (12/16/24 15:45) Code Status (12/16/24 15:45) Sodium Chloride 0.9% (12/16/24 15:45) Oxygen Per Hour (12/16/24 15:45) Hydrocodone-Acet 5/325mg Tab ([place] 5/32 (12/16/24 15:45) Ondansetron Hcl (Zofran) (12/16/24 15:45) Complete Blood Count (12/17/24 04:00) Comprehensive Metabolic Panel (12/17/24 04:00) Condition: Serious (12/16/24 15:45) Acetaminophen Tablet (Tylenol Tablet) (12/16/24 15:45) Clear Liq Diet (12/16/24 Dinner) Bedrest With Bathroom Privileg (12/16/24 15:45) Sequential Compression Device (12/16/24 ) Hydralazine Injection (Apresoline Inject (12/16/24 15:45) Admit (12/16/24 17:28) Nitroglycerin Sublingual (Ntrostat Subli (12/16/24 17:30) Morphine Sulfate Injection (12/16/24 17:30) Notify Md Of Changes From Base (12/16/24 17:28) Emergency Dysrhythmia Protocol (12/16/24 17:28) Oxygen By Nasal Cannula (12/16/24 17:28) Vital Signs Date Time Temp Pulse Resp B/P (MAP) Pulse Ox O2 Delivery O2 Flow Rate FiO2 12/16/24 14:24 106 18 129/98 12/16/24 13:50 106 12/16/24 13:46 106 12/16/24 13:45 98.1 118 20 113/92 (99) 98 98.1 Laboratory Tests Test 12/16/24 14:18 12/16/24 15:52 Lactic Acid Level 2.1 mmol/L (0.4-2.0) *H 1.2 mmol/L (0.4-2.0) White Blood Count 12.3 10^3/uL (4.4-10.8) H Medications Medications Dose Ordered Sig/Martin Route Start Time Stop Time Status Last Admin Dose Admin Ceftriaxone Sodium 50 ml @ 100 mls/hr ONCE ONCE IV 12/16/24 15:00 12/16/24 15:29 DC 12/16/24 16:17 100 MLS/HR Metronidazole 100 ml @ 100 mls/hr ONCE ONCE IV 12/16/24 15:00 12/16/24 15:59 DC 12/16/24 16:17 100 MLS/HR Morphine Sulfate 4 mg ONCE ONCE IV 12/16/24 13:45 12/16/24 13:47 DC 12/16/24 14:24 4 MG Ondansetron HCl 4 mg ONCE ONCE IV 12/16/24 13:45 12/16/24 13:47 DC 12/16/24 14:23 4 MG Pantoprazole Sodium 40 mg ONCE ONCE IV 12/16/24 15:45 12/16/24 16:02 DC 12/16/24 16:17 40 MG Sodium Chloride 500 ml @ 500 mls/hr Q1H ONCE IV 12/16/24 15:45 12/16/24 16:44 DC 12/16/24 16:16 500 MLS/HR Sodium Chloride 1,000 ml @ 1,000 mls/hr Q1H ONCE IVB 12/16/24 13:45 12/16/24 14:44 DC 12/16/24 14:23 1,000 MLS/HR Assessment/Plan Assessment/Plan Sepsis, unspecified organism Gastritis Hypokalemia Diverticulosis of colon without diverticulitis Acute gastritis without bleeding Plan 1. Admit to telemetry unit 2. Breathing treatment 3. Pain control management 4. IV antibiotic management 5. Management of fluids and electrolytes 6. Consultation for hospitalist 7. Diagnostic test abdomen/pelvis CT 8. DVT prophylaxis on SCDs 9. Repeat labs CBC, CMP in a.m. 10.Home medication reviewed and reconciled 11. Continue with current medical management 12. Treatment plan discussed with patient and RN. Patient verbalized understanding. Plan discussed with: Patient, Other (RN) My Orders Orders - HANSEL CARDOZO DNP Procedure Category Date Status Time Ceftriaxone 1gm/50ml PHA 12/17/24 In Process D5w (Rocephin) 09:00 Metronidazole PHA 12/16/24 In Process 500mg/100ml (Flagyl 22:00 Pantoprazole PHA 12/17/24 In Process (Protonix) 10:00 Allergies ZAINAB 12/16/24 In Process 15:45 Code Status CODE 12/16/24 Transmitted 15:45 Sodium Chloride 0.9% PHA 12/16/24 In Process 15:45 Oxygen Per Hour RT 12/16/24 Transmitted 15:45 Hydrocodone-Acet PHA 12/16/24 In Process 5/325mg Tab ([place] 15:45 Ondansetron Hcl PHA 12/16/24 In Process (Zofran) 15:45 Complete Blood Count LAB 12/17/24 Verified 04:00 Comprehensive LAB 12/17/24 Verified Metabolic Panel 04:00 Condition: Serious ZAINAB 12/16/24 In Process 15:45 Acetaminophen Tablet PHA 12/16/24 In Process (Tylenol Tablet) 15:45 Clear Liq Diet DIET 12/16/24 Transmitted Dinner Bedrest With Bathroom ZAINAB 12/16/24 In Process Privileg 15:45 Sequential ZAINAB 12/16/24 In Process Compression Device Hydralazine Injection PHA 12/16/24 In Process (Apresoline Inject 15:45 Admit ADMIT 12/16/24 Verified 17:28 Nitroglycerin PHA 12/16/24 Verified Sublingual (Ntrostat 17:30 Morphine Sulfate PHA 12/16/24 Verified Injection 17:30 Notify Md Of Changes ZAINAB 12/16/24 Verified From Base 17:28 Emergency Dysrhythmia ZAINAB 12/16/24 Verified Protocol 17:28 Oxygen By Nasal RT 12/16/24 Verified Cannula 17:28 Problem List: (1) Sepsis, unspecified organism (2) Gastritis (3) Hypokalemia (4) Diverticulosis of colon without diverticulitis (5) Acute gastritis without bleeding Date of Service: Dec 16, 2024 Billing Provider: HANSEL CARDOZO DNP Common Visit Codes: 26953-[id number] INP/OBS CARE (HIGH) HANSEL CARDOZO DNP Dec 16, 2024 17:29
[2024-12-16] MEDS ORDERED: MORPHINE SULFATE INJ 2 MG/ml SYRG IV PRN (17:30)
[2024-12-16] MEDS ORDERED: NITROGLYCERIN 0.4 MG SL TAB SL PRN (17:30)
[2024-12-16] MEDS: POTASSIUM CHL 20MEQ/100ML 100 ML IV SCH (21:03)
[2024-12-16 21:25] LABS: Urine Protein, UAD TRACE (Negative)
[2024-12-16] MEDS: hydrALAZINE HCL 20 MG/ML VL IV PRN (23:43)
[2024-12-16 23:54] VITALS: BP 164/94; PULSE 96; RESP 20; TEMP 97.4; O2SAT 98
[2024-12-17] MEDS: HYDROcodone-ACET 5/325MG TAB PO PRN (00:39)
[2024-12-17 05:00] VITALS: BP 122/65; PULSE 74; RESP 20; TEMP 99.1; O2SAT 95
[2024-12-17 05:30] LABS: Hematocrit 39.6 % (36.0-46.0); Hemoglobin 14.0 g/dL (12.2-16.2); Mean Corpuscular Hemoglobin 32.4 pg (28.0-32.0); Mean Corpuscular Volume 91.4 fL (80.0-100.0); Nucleated Red Blood Cells % 0.1 %
[2024-12-17 05:51] LABS: Alanine Aminotransferase 17 U/L (7-40); Albumin 4.0 g/dL (3.2-4.8); Anion Gap 16 (5-15); BUN/Creatinine Ratio 14.3 (10.0-20.0); Bilirubin, Total 0.4 mg/dL (0.2-1.0); Blood Urea Nitrogen 9 mg/dL (9-23); Calcium 9.8 mg/dL (8.7-10.4); Sodium 143 mmol/L (136-145); Total Protein 6.3 g/dL (5.7-8.2)
[2024-12-17 05:58] LABS: Alkaline Phosphatase 46 U/L (46-116); Carbon Dioxide 19 mmol/L (20-31); Chloride 108 mmol/L (98-107); Glucose 74 mg/dL (74-106); Potassium 3.1 mmol/L (3.5-5.1)
[2024-12-17] MEDS: ACETAMINOPHEN 325 MG TAB PO PRN (06:17)
[2024-12-17 08:52] VITALS: BP 127/76; PULSE 69; RESP 17; TEMP 97.9; O2SAT 98
[2024-12-17] MEDS: PANTOPRAZOLE 40 MG/10 ML VIAL INJ IV SCH (09:04)
[2024-12-17] MEDS: cefTRIAXone 1GM/50ML D5W 50 ML IV SCH (09:04)
[2024-12-17] MEDS ORDERED: POTA-36 PO (11:38)
[2024-12-17] MEDS ORDERED: CIPR500T4 PO (11:38)
--- NOTE | 2024-12-17 12:40 | DVHDS2 ---
Discharge Summary Date of Admission Dec 16, 2024 at 17:28 Date of Discharge: Dec 17, 2024 Labs/Diagnostic Data: Laboratory Results Test 12/17/24 04:16 12/16/24 21:13 12/16/24 15:52 White Blood Count 8.6 10^3/uL (4.4-10.8) Red Blood Count 4.33 10^6/uL (4.0-5.20) Hemoglobin 14.0 g/dL (12.2-16.2) Hematocrit 39.6 % (36.0-46.0) Mean Corpuscular Volume 91.4 fL (80.0-100.0) Mean Corpuscular Hemoglobin 32.4 pg (28.0-32.0) Mean Corpuscular Hemoglobin Concent 35.4 g/dL (32.0-36.0) Red Cell Distribution Width 12.9 % (11.8-14.3) Platelet Count 357 10^3/uL (140-450) Mean Platelet Volume 7.4 fL (6.9-10.8) Neutrophils (%) (Auto) 76.0 % (37.0-80.0) Lymphocytes (%) (Auto) 16.4 % (10.0-50.0) Monocytes (%) (Auto) 6.3 % (0.0-12.0) Eosinophils (%) (Auto) 0.4 % (0.0-7.0) Basophils (%) (Auto) 0.9 % (0.0-2.0) Neutrophils # (Auto) 6.6 10 ^3/uL (1.6-8.6) Lymphocytes # (Auto) 1.4 10 ^3/uL (0.4-5.4) Monocytes # (Auto) 0.5 10 ^3/uL (0-1.3) Eosinophils # (Auto) 0 10 ^3/uL (0-0.8) Basophils # (Auto) 0.1 10 ^3/uL (0-0.2) Nucleated Red Blood Cells 0.1 % Sodium Level 143 mmol/L (136-145) Potassium Level 3.1 mmol/L (3.5-5.1) Chloride Level 108 mmol/L (98-107) Carbon Dioxide Level 19 mmol/L (20-31) Anion Gap 16 (5-15) Blood Urea Nitrogen 9 mg/dL (9-23) Creatinine 0.63 mg/dL (0.550-1.02) Glomerular Filtration Rate Calc 94 mL/min (>90) BUN/Creatinine Ratio 14.3 (10.0-20.0) Serum Glucose 74 mg/dL (74-106) Calcium Level 9.8 mg/dL (8.7-10.4) Total Bilirubin 0.4 mg/dL (0.2-1.0) Aspartate Amino Transferase (AST) 24 U/L (13-40) Alanine Aminotransferase (ALT) 17 U/L (7-40) Alkaline Phosphatase 46 U/L (46-116) Total Protein 6.3 g/dL (5.7-8.2) Albumin 4.0 g/dL (3.2-4.8) Urine Color Colorless (Yellow) Urine Clarity Turbid (Clear) Urine pH 5.5 (5.0-9.0) Urine Specific [place] 1.017 (1.001-1.035) Urine Protein Trace (Negative) Urine Ketones 4+ (Negative) Urine Blood 1+ /uL (Negative) Urine Nitrite Negative (Negative) Urine Bilirubin Negative (Negative) Urine Urobilinogen Normal mg/dL (Negative) Urine Leukocyte Esterase 3+ /uL (Negative) Urine RBC 17 /hpf (0 - 4) Urine Microscopic WBC 107 /HPF (0-5) Urine Squamous Epithelial Cells Mod /hpf (<5) Urine Bacteria Few /hpf (None Seen) Urine Hyaline Casts Few /lpf (0 - 2) Urine Glucose Normal mg/dL (Normal) Lactic Acid Level 1.2 mmol/L (0.4-2.0) Other Laboratory Tests 12/17/24 04:16 Brief Hx & Hospital Course: 74-year-old female with past medical history of GERD, hypertension, and kidney stones who presented to [facility] ED with complaint of abdominal pain. Patient reports symptoms progressively get worse with left lower quadrant abdominal pain, rating 7/10 numeric scale, associated with nausea, vomiting, and diarrhea. Patient was seen and evaluated in the ED, laboratory data shows WBC 12.3, hemoglobin 16.7, hematocrit 48.2, platelets 494, sodium 143, potassium 2.7, BUN 12, creatinine 0.71, glucose 80, calcium 10.1, lactic acid 2.1 trending down to 1.2, blood pressure 129/98, heart rate 106, temperature 98.1 F, O2 saturation 98% on room air. Abdomen/pelvis CT revealing mild gastritis, colonic diverticulosis without diverticulitis, punctate nonobstructing bilateral renal calculi. Patient was started on IV antibiotic regimen Flagyl, please see medication orders section in the computer. On my assessment, patient denied chest pain, no dizziness, no headache, no shortness of breaths, no diarrhea, no nausea or vomiting at this moment, no fever, no chills. Patient was admitted for further evaluation and medical management. CT with gastritis UTI on IV abx able to tolerate diet hypokalemia improved Condition at Discharge: Good Final Diagnosis/Problems List UTI hypokalemia gastritis Discharge Disposition: Home Discharge Instruct/Medications Diet: Regular Diet comment: CLEAR LIQUID Activity: No Restrictions, As Tolerated Follow Up/Referral: PCP in 7 days Medications: potassium, ciprofloxain Scheduled Ciprofloxacin Hcl (Ciprofloxacin Hcl), 1 TAB PO BID Dicyclomine Hcl (Dicyclomine Hcl), 10 MG PO QID, (Reported) Enalapril Maleate (Vasotec Tablet), 1 TAB PO DAILY, (Reported) Hydrochlorothiazide (Hydrochlorothiazide), 25 MG PO DAILY, (Reported) Pantoprazole Sodium Sesquihydr (Pantoprazole Sodium Dr), 20 MG PO DAILY, (Reported) Potassium Chloride (Potassium Chloride Cr), 1 TAB PO DAILY Temazepam (Temazepam), 1 CAP PO QPM, (Reported) Discharge Statement: "Patient was advised to return to the ER or call 911 if any headaches, dizziness, shortness of breath, chest pain, abdominal pain, bleeding, fevers, or worsening of medical condition. Patient was counseled about treatment plan, medications, possible side effects, patientverbalized understanding. All questions were answered to the best of my ability. This discharge took greater then 30 minutes in planning, reviewing documentation, counseling the patient, and discussing with other team members." ASSESSMENT ASSESSMENT Assessment UTI hypokalemia gastritis Date of Service: Dec 17, 2024 Billing Provider: QUANG VILA MD Common Visit Codes: 04625-FNY/OBS DISCH DAY >30min QUANG VILA MD Dec 17, 2024 12:40
[2024-12-17 12:41] VITALS: BP 142/89; PULSE 70; RESP 17; TEMP 97.2; O2SAT 100
--- NOTE | 2024-12-18 08:00 | ECG ---
[facility] Test Date: 2024-12-16 Test Time: 13:46:01 Pat Name: HALEY DORSEY Department: ER Room: 0286 B Gender: F [employer]: KAREN : 1950 Requested By: GREY VALERO Order Number: [id number] Reading MD: Wai Cancino Measurements Intervals [place] Rate: 106 P: 73 MN: 200 QRS: 14 QRSD: 82 T: 58 QT: 330 QTc: 439 Interpretive Statements Sinus tachycardia Consider right atrial enlargement Anteroseptal infarct, old Electronically Signed On 12-24-2024 13:58:59 PDT by Wai Cancino Please click the below link to view image of tracing.
== END 2024-12-17 13:37 | disposition home or self-care (01) | DRG 872 ==
LOC: ER 13:34 → OVERFLOW 17:28 → WEST WING 23:54
PROVIDERS: ADMIT Hospitalist; ATTEND Hospitalist
DX: A41.9 Sepsis, unspecified organism (principal); N39.0 Urinary tract infection, site not specified; K57.32 Diverticulitis of large intestine without perforation or abscess without bleeding; I10 Essential (primary) hypertension; K29.00 Acute gastritis without bleeding; E87.6 Hypokalemia; K21.9 Gastro-esophageal reflux disease without esophagitis; Z87.442 Personal history of urinary calculi
CPT/HCPCS: 36415; 74176; 80048; 80053; 81001; 83605; 85025; 87040; 93005; 96374; 99291; 99292; G0378; J2405; J2470; J3480; J3490

== ENCOUNTER 2024-12-23 16:17 | Inpatient (IN) | payer OTHER ==
[~2024-12-23] VITALS: Ht 162.6 cm; Wt 51.5 kg
[~2024-12-23 16:17] MED LIST changes: +CIPR500T4 PO; +POTA-36 PO
--- NOTE | 2024-12-23 17:06 | ED.PDOC ---
GI ASSESSMENT HPI Comments A 74 year-old female, with a PMHX of HTN, GERD, and Kidney Stones, presents to the ED with a chief complaint of LLQ abdominal pain with associated diarrhea as of X2 weeks ago. Patient reports LLQ abdominal pain as constant, radiating to lower back, with no associated relieving factors. Patient came to the ED X1 week ago on Sunday for abdominal pain, reports staying overnight, with symptoms gone by Sunday. Patient states she went home and drank where symptoms began to persist again. Patient came to the ED for further evaluation of persistent abdominal pain. Patient has no further complaints at this time and otherwise denies further associated symptoms of N/V, cough, chest pain, dysuria, hematur ia, urgency, fever, or chills. Chief Complaint: Abdominal Pain Time Seen by MD: 16:49 Primary Care Provider: Demi Reviewed Notes: Nurses Notes, Medications, Allergies Allergies: Coded Allergies: NO KNOWN ALLERGIES (Unverified , 03/26/24) Home Meds Active Scripts Potassium Chloride (POTASSIUM CHLORIDE CR) 10 Meq Tb, 1 TAB PO DAILY for 5 Days, #5 TAB 5 Refills Prov:QUANG VILA MD 12/17/24 Ciprofloxacin Hcl (Ciprofloxacin Hcl) 500 Mg Tab, 1 TAB PO BID for 3 Days, #6 TAB Prov:QUANG VILA MD 12/17/24 Reported Medications Dicyclomine Hcl (Dicyclomine Hcl) 10 Mg Cap, 10 MG PO QID for 30 Days, MG 03/26/24 Temazepam (Temazepam) 30 Mg Cap, 1 CAP PO QPM, #30 CAP 1 Refill 03/26/24 Enalapril Maleate (VASOTEC TABLET) 10 Mg Tb, 1 TAB PO DAILY, #30 TAB 5 Refills 10/22/19 Pantoprazole Sodium Sesquihydr (Pantoprazole Sodium Dr) 20 Mg Tab, 20 MG PO DAILY, TAB 07/31/19 Hydrochlorothiazide (Hydrochlorothiazide) 25 Mg Tab, 25 MG PO DAILY for 30 Days, MG 07/31/19 Information Source: Patient Mode of Arrival: Ambulatory Duration: Since onset Severity: Moderate Pain Location: LLQ Associated sign and symptoms: Diarrhea, Abdominal Pain Past Medical History PAST MEDICAL HISTORY: GERD, HTN, Kidney Stones Surgical History (Other): Ovarian Cyst Removal 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 Family History Family History: Family hx of heart chanelle Social History Smoker: Non-Smoker Alcohol: Heavy Drugs: Marijuana Lives In: Home Constitutional: denies: chills, diaphoresis, fatigue, fever, malaise, sweats, weakness, others EENTM: denies: blurred vision, double vision, ear bleeding, ear discharge, ear drainage, ear pain, ear ringing, eye pain, eye redness, hearing loss, mouth pain, mouth swelling, nasal discharge, nose bleeding, nose congestion, nose pain, photophobia, tearing, throat pain, throat swelling, voice changes, others Respiratory: denies: cough, hemoptysis, orthopnea, SOB at rest, shortness of breath, SOB with excertion, stridor, wheezing, others Cardiovascular: denies: chest pain, dizzy spells, diaphoresis, Dyspnea on exertion, edema, irregular heart beat, left arm pain, lightheadedness, palpitations, PND, syncope, others Gastrointestinal: reports: abdominal pain, diarrhea; denies: abdomen distended, blood streaked bowels, constipated, dysphagia, difficulty swallowing, hematemesis, melena, nausea, poor appetite, poor fluid intake, rectal bleeding, rectal pain, vomiting, others Genitourinary: denies: abnormal vagina bleeding, burning, dyspareunia, dysuria, flank pain, frequency, hematuria, incontinence, pain, , vagina discharge, urgency, others Neurological: denies: dizziness, fainting, headache, left sided numbness, left sided weakness, numbness, paresthesia, pre-existing deficit, right sided numbness, right sided weakness, seizure, speech problems, tingling, tremors, weakness, others Musculoskeletal: denies: back pain, gout, joint pain, joint swelling, muscle pain, muscle stiffness, neck pain, others Integumetry: denies: bruises, change in color, change in hair/nails, dryness, laceration, lesions, lumps, rash, wounds, others Allergic/Immunocompromised: denies: Difficulty Healing, Frequent Infections, Hives, Itching, others Hematologic/Lymphatic: denies: anemia, blood clots, easy bleeding, easy bruising, swollen glands, others Endocrine: denies: excessive hunger, excessive sweating, excessive thirst, excessive urination, flushing, intolerance to cold, intolerance to heat, unexplained weight gain, unexplained weight loss, others Psychiatric: denies: anxiety, bipolar disorder, depression, hopeless, panic disorder, schizophrenia, sleepless, suicidal, others All Other Systems: Reviewed and Negative Physical Exam General Appearance: Moderate Distress HEENT: Normal ENT Inspection, Pharynx Normal, TMs Normal Neck: Full Range of Motion, Non-Tender, Normal, Normal Inspection Respiratory: Chest Non-Tender, Lungs Clear, No Accessory Muscle Use, No Respiratory Distress, Normal Breath Sounds Cardiovascular: No Edema, No JVD, No Murmur, No Gallop, Normal Peripheral Pulses, Regular Rate/Rhythm Breast Exam: Deferred Gastrointestinal: LLQ, LUQ, No Organomegaly, No Pulsatile Mass, Normal Bowel Sounds, Soft, Tenderness Genitalia: Deferred Pelvic: Deferred Rectal: Deferred Extremities: No calf tenderness, Normal capillary refill, Normal inspection, Normal range of motion, Non-tender, No pedal edema Musculoskeletal : Apperance: Normal Neurologic: Alert, aquarium tank attendant II-XII nml as Tested, Motor Weakness, Normal Affect, Normal Mood, No Sensory Deficits Cerebellar Function: Normal Reflexes: Normal Skin: Dry, Normal Color, Warm Lymphatic: No Adenopathy Was a procedure done? Was a procedure done?: No GI differential Dx Differential Diagnosis: Appendicitis, Constipation, Gastritis/PUD, Heraclio roenteritis, Inflammatory BD, Dehydration, Bacterial, Parasitic, Viral X-Ray, Labs, Meds, VS Vital Signs Date Time Temp Pulse Resp B/P (MAP) Pulse Ox O2 Delivery O2 Flow Rate FiO2 12/23/24 16:26 97.7 100 20 141/95 97 97.7 Lab Test 12/23/24 17:54 12/23/24 17:15 Range/Units Urine Color Light-yellow Yellow Urine Clarity Clear Clear Urine pH 6.0 5.0-9.0 Urine Specific [place] 1.010 1.001-1.035 Urine Protein Negative Negative Urine Ketones 3+ H Negative Urine Blood Trace H Negative /uL Urine Nitrite Negative Negative Urine Bilirubin Negative Negative Urine Urobilinogen Normal Negative mg/dL Urine Leukocyte Esterase Negative Negative /uL Urine RBC 1 0 - 4 /hpf Urine Microscopic WBC 2 0-5 /HPF Urine Squamous Epithelial Cells Few <5 /hpf Urine Bacteria None seen None Seen /hpf Urine Glucose Normal Normal mg/dL White Blood Count 11.1 #H 4.4-10.8 10^3/uL Red Blood Count 5.09 4.0-5.20 10^6/uL Hemoglobin 16.4 #H 12.2-16.2 g/dL Hematocrit 45.9 # 36.0-46.0 % Mean Corpuscular Volume 90.2 80.0-100.0 fL Mean Corpuscular Hemoglobin 32.3 H 28.0-32.0 pg Mean Corpuscular Hemoglobin Concent 35.8 32.0-36.0 g/dL Red Cell Distribution Width 13.1 11.8-14.3 % Platelet Count 590 H 140-450 10^3/uL Mean Platelet Volume 7.1 6.9-10.8 fL Neutrophils (%) (Auto) 73.9 37.0-80.0 % Lymphocytes (%) (Auto) 16.8 10.0-50.0 % Monocytes (%) (Auto) 7.8 0.0-12.0 % Eosinophils (%) (Auto) 0.6 0.0-7.0 % Basophils (%) (Auto) 0.9 0.0-2.0 % Neutrophils # (Auto) 8.2 1.6-8.6 10 ^3/uL Lymphocytes # (Auto) 1.9 0.4-5.4 10 ^3/uL Monocytes # (Auto) 0.9 0-1.3 10 ^3/uL Eosinophils # (Auto) 0.1 0-0.8 10 ^3/uL Basophils # (Auto) 0.1 0-0.2 10 ^3/uL Nucleated Red Blood Cells 0.1 % Sodium Level 139 136-145 mmol/L Potassium Level 3.3 L 3.5-5.1 mmol/L Chloride Level 96 #L 98-107 mmol/L Carbon Dioxide Level 26 20-31 mmol/L Anion Gap 17 H 5-15 Blood Urea Nitrogen 10 9-23 mg/dL Creatinine 0.88 # 0.550-1.02 mg/dL Glomerular Filtration Rate Calc 69 >90 mL/min BUN/Creatinine Ratio 11.4 10.0-20.0 Serum Glucose 103 74-106 mg/dL Calcium Level 11.4 H 8.7-10.4 mg/dL Total Bilirubin 0.5 0.2-1.0 mg/dL Aspartate Amino Transferase (AST) 28 13-40 U/L Alanine Aminotransferase (ALT) 20 7-40 U/L Alkaline Phosphatase 51 46-116 U/L Total Protein 8.0 5.7-8.2 g/dL Albumin 5.1 H 3.2-4.8 g/dL ABDOMINAL CT Limited evaluation without contrast. Punctate nonobstructing renal calculi. Colonic diverticular disease. Moderate volume stool within the colon. Atherosclerotic disease. Sequela of remote granulomatous disease Other findings as described The patient's CBC shows an elevated white blood cell count of 11.1 The urine test is negative The chemistry panel shows hypochloremia and hypokalemia The patient is being admitted at this time The patient understands and agrees with the management Images Reviewed?: Images reviewed and evaluated by me Time of 1ST Reevaluation: 17:24 Reevaluation 1ST: Unchanged Patient Education/Counseling: Diagnosis, Treatment, Prognosis Family Education/Counseling: No Family Present Medical Screening: No EMC Exist At This Time SEPSIS Sepsis Screen Date sepsis recognized/suspect: Dec 23, 2024 Time Sepsis recognized/suspect: 1625 Recent Procedure: No On Antibiotic Therapy: No Respiratory Rate >20: No Heart Rate >90: Yes Temp<36 C (96.8 F) or >38.3 C: No SBP <90 or MAP <65 mmHG: No New Acute Mental Status Change: No Is the patient on CPAP, BIPAP,: No Physician Orders Ct Ab Pel Wo Con-No Oral Or Iv (12/23/24 17:03) Heplock Iv (12/23/24 17:03) Vital Signs Date Time Temp Pulse Resp B/P (MAP) Pulse Ox O2 Delivery O2 Flow Rate FiO2 12/23/24 16:26 97.7 100 20 141/95 97 97.7 Laboratory Tests Test 12/23/24 17:15 White Blood Count 11.1 10^3/uL (4.4-10.8) #H Departure 1 Departure Time of Disposition: 18:37 Impression: Primary Impression: Intractable abdominal pain Disposition: 09 ADMITTED INPATIENT Admit to: Med Surg Condition: Fair Critical Care Note Critical Care Time?: No Stability Stability form required: Yes Unstable for transfer: ED Physician Assesment (Clinical assesment) Heart Score Heart Score: Heart Score Response (Comments) Value History N/A 0 EKG N/A 0 Age N/A 0 Risk Factors N/A 0 Troponin N/A 0 Total 0 I personally scribed for KRISTINE GODINEZ MD ([email or web address]) on 12/23/24 at 17:06. Electronically submitted by Annabel Chapin ([employer]). I personally scribed for KRISTINE GODINEZ MD ([email or web address]) on 12/23/24 at 18:34. Electronically submitted by Annabel Chapin ([employer]). KRISTINE GODINEZ MD Dec 23, 2024 17:06
[2024-12-23 17:28] LABS: Hemoglobin 16.4 g/dL (12.2-16.2)
[2024-12-23 17:30] LABS: Hematocrit 45.9 % (36.0-46.0); Mean Corpuscular Hemoglobin 32.3 pg (28.0-32.0); Mean Corpuscular Volume 90.2 fL (80.0-100.0); Nucleated Red Blood Cells % 0.1 %
[2024-12-23 17:43] LABS: Alanine Aminotransferase 20 U/L (7-40); Alkaline Phosphatase 51 U/L (46-116); Anion Gap 17 (5-15); Carbon Dioxide 26 mmol/L (20-31); Glucose 103 mg/dL (74-106); Sodium 139 mmol/L (136-145); Total Protein 8.0 g/dL (5.7-8.2)
[2024-12-23 17:44] LABS: Albumin 5.1 g/dL (3.2-4.8); BUN/Creatinine Ratio 11.4 (10.0-20.0); Bilirubin, Total 0.5 mg/dL (0.2-1.0); Blood Urea Nitrogen 10 mg/dL (9-23); Calcium 11.4 mg/dL (8.7-10.4); Chloride 96 mmol/L (98-107); Potassium 3.3 mmol/L (3.5-5.1)
--- NOTE | 2024-12-23 17:59 | DVH ---
Indication: left lower abd pain Technique: CT axial images of the abdomen and pelvis are obtained without contrast. Coronal and sagit alexandra reformats were obtained. Radiation Dose Information: CTDI volume is 5.5 mGy. Dose-length product is 277.46 mGy*cm Comparison: CT CT AB PEL WO CON-NO ORAL OR IV on DOS: 12/16/24, CT ABD PELVIS WO CONTRAST on DOS: 10/22 FINDINGS: There is limited interpretation of the abdomen and pelvis without administration of intravenous contr ast. Lung bases demonstrate no pleural effusion. Pulmonary emphysematous changes. Adrenal glands unremarkable in shape. Splenic calcifications consistent with remote granulomatous di sease. Pancreas unremarkable in shape. Hepatic calcifications consistent with remote granulomatous d isease. No CT evidence for cholelithiasis. Kidneys demonstrate no hydronephrosis. Nonobstructing left renal calculi up to 2 mm. Nonobstructing right renal calculus 2 mm. Stomach is partially distended. Small bowel loops are normal in caliber. Colonic diverticular disease. Moderate volume stool in the colon. Normal appendix. Abdominal aortic atherosclerotic disease. Bladder is partially distended. Calcified uterine leiomyom as. No free pelvic fluid. No inguinal lymphadenopathy. [id number] thoracolumbar degenerative disc disease most pronounced at L5-S1. IMPRESSION: Limited evaluation without contrast. Punctate nonobstructing renal calculi. Colonic diverticular disease. Moderate volume stool within the colon. Atherosclerotic disease. Sequela of remote granulomatous disease Other findings as described
[2024-12-23 18:16] LABS: Urine Protein, UAD Negative (Negative)
[2024-12-23] MEDS: ONDANSETRON HCL 4 MG/2 ML VIAL IV ONE (20:03)
[2024-12-23] MEDS: SODIUM CHLORIDE 0.9% 500 ML IVB ONE (20:03)
[2024-12-23] MEDS: MORPHINE SULFATE 4 MG/ML SYR/VIAL IV ONE (20:04)
[2024-12-23 20:30] VITALS: PULSE 83; RESP 18; O2SAT 98
[2024-12-23] MEDS ORDERED: MORPHINE SULFATE INJ 2 MG/ml SYRG IV PRN (23:15)
[2024-12-23] MEDS ORDERED: NITROGLYCERIN 0.4 MG SL TAB SL PRN (23:15)
[2024-12-23] MEDS: cefTRIAXone 1GM/50ML D5W 50 ML IV ONE (23:42)
[2024-12-24] VITALS (8 sets, daily range): BP systolic 100–148; BP diastolic 65–87; PULSE 65–74; RESP 14–18; TEMP 97.6–98.8; O2SAT 95–100
[2024-12-24] MEDS: SODIUM CHLORIDE 0.9% 1,000 ML IV SCH (00:11)
--- NOTE | 2024-12-24 02:23 | DVHHPRES ---
History of Present Illness Resident Creating Document: ANGELA MEAD RESIDENT History of Present Illness 74-year-old female with history of GERD, diverticulitis, kidney stone presents to the ER due to left lower abdominal pain since last 3 weeks. Pain is constant in nature, gradual onset, nonradiating and rating 6/10. She has been admitted to the hospital 1 week ago due to abdominal pain, she was diagnosed with diverticulitis. The patient reports having constipation for last few days before the intractable pain episode started. The patient reports having boiled eggs and banana worsened her pain. She denies associated diarrhea, nausea, vomiting with the abdominal pain. She denies chest pain, shortness of breath, fever or any other complaints at this time. The patient reports headaches since this morning. She has difficulty sleeping not relieved by temazepam. Past medical history: Hypertension, GERD, diverticulitis, kidney stones Past surgical history: Ovarian cyst removal during 43 years ago. Smoking history: Smoked in her 20s and 30s, can not remember the number of pack Drugs: Used marijuana till 2019 Alcohol: Used to drink few beers at nighttime until 2019 Code status: DNR DNI PCP Dr. Lovelace Review of Systems Gastrointestinal: Abdominal Pain Allergies: Coded Allergies: NO KNOWN ALLERGIES (Unverified , 03/26/24) Medications Current Medications Medications Dose Ordered Sig/Martin Route Start Time Stop Time Status Last Admin Dose Admin Sodium Chloride 10 ml Q8HR IV 12/24/24 06:00 Sodium Chloride 1,000 ml @ 60 mls/hr [id number] IV 12/23/24 23:15 12/24/24 00:11 60 MLS/HR Acetaminophen 650 mg Q6HP PRN PO 12/23/24 23:15 Nitroglycerin 0.4 mg Q5MINP PRN SL 12/23/24 23:15 Morphine Sulfate 2 mg Q30M PRN IV 12/23/24 23:15 Ceftriaxone Sodium 50 ml @ 100 mls/hr DAILY IV 12/24/24 10:00 Enalapril Maleate 10 mg DAILY PO 12/24/24 10:00 Exam Vital Signs Vital Signs Date Time Temp Pulse Resp B/P (MAP) Pulse Ox O2 Delivery O2 Flow Rate FiO2 12/23/24 23:54 80 16 128/76 (93) 97 12/23/24 22:58 98.1 98.1 7/29/25 20:30 Room Air* 0 21 Exam Pt is lying on bed General Appearance: Alert, Oriented X3, Cooperative, Mild distress HEENT: Atraumatic, Mucous membranes moist/pink Respiratory: Clear to auscultation, Normal air movement, No added sounds Cardiovascular: Regular rate, Normal S1, Normal S2, No murmurs Abdominal/ : Active bowel sounds, Soft, no distention, no tenderness Extremities: No edema, Normal pulses, No tenderness/swelling Skin: No Significant rash, except past surgical scars Neuro: Normal speech, sensorimotor deficits none Psych/Mental Status: Mental status NL, Mood NL Nurse was there as senior process engineer during examination Labs/Xrays Labs Test 12/23/24 17:54 12/23/24 17:15 Range/Units Urine Color Light-yellow Yellow Urine Clarity Clear Clear Urine pH 6.0 5.0-9.0 Urine Specific [place] 1.010 1.001-1.035 Urine Protein Negative Negative Urine Ketones 3+ H Negative Urine Blood Trace H Negative /uL Urine Nitrite Negative Negative Urine Bilirubin Negative Negative Urine Urobilinogen Normal Negative mg/dL Urine Leukocyte Esterase Negative Negative /uL Urine RBC 1 0 - 4 /hpf Urine Microscopic WBC 2 0-5 /HPF Urine Squamous Epithelial Cells Few <5 /hpf Urine Bacteria None seen None Seen /hpf Urine Glucose Normal Normal mg/dL White Blood Count 11.1 #H 4.4-10.8 10^3/uL Red Blood Count 5.09 4.0-5.20 10^6/uL Hemoglobin 16.4 #H 12.2-16.2 g/dL Hematocrit 45.9 # 36.0-46.0 % Mean Corpuscular Volume 90.2 80.0-100.0 fL Mean Corpuscular Hemoglobin 32.3 H 28.0-32.0 pg Mean Corpuscular Hemoglobin Concent 35.8 32.0-36.0 g/dL Red Cell Distribution Width 13.1 11.8-14.3 % Platelet Count 590 H 140-450 10^3/uL Mean Platelet Volume 7.1 6.9-10.8 fL Neutrophils (%) (Auto) 73.9 37.0-80.0 % Lymphocytes (%) (Auto) 16.8 10.0-50.0 % Monocytes (%) (Auto) 7.8 0.0-12.0 % Eosinophils (%) (Auto) 0.6 0.0-7.0 % Basophils (%) (Auto) 0.9 0.0-2.0 % Neutrophils # (Auto) 8.2 1.6-8.6 10 ^3/uL Lymphocytes # (Auto) 1.9 0.4-5.4 10 ^3/uL Monocytes # (Auto) 0.9 0-1.3 10 ^3/uL Eosinophils # (Auto) 0.1 0-0.8 10 ^3/uL Basophils # (Auto) 0.1 0-0.2 10 ^3/uL Nucleated Red Blood Cells 0.1 % Sodium Level 139 136-145 mmol/L Potassium Level 3.3 L 3.5-5.1 mmol/L Chloride Level 96 #L 98-107 mmol/L Carbon Dioxide Level 26 20-31 mmol/L Anion Gap 17 H 5-15 Blood Urea Nitrogen 10 9-23 mg/dL Creatinine 0.88 # 0.550-1.02 mg/dL Glomerular Filtration Rate Calc 69 >90 mL/min BUN/Creatinine Ratio 11.4 10.0-20.0 Serum Glucose 103 74-106 mg/dL Calcium Level 11.4 H 8.7-10.4 mg/dL Total Bilirubin 0.5 0.2-1.0 mg/dL Aspartate Amino Transferase (AST) 28 13-40 U/L Alanine Aminotransferase (ALT) 20 7-40 U/L Alkaline Phosphatase 51 46-116 U/L Total Protein 8.0 5.7-8.2 g/dL Albumin 5.1 H 3.2-4.8 g/dL SEPSIS Sepsis Screen Date sepsis recognized/suspect: Dec 23, 2024 Time Sepsis recognized/suspect: 1625 Recent Procedure: No On Antibiotic Therapy: No Respiratory Rate >20: No Heart Rate >90: Yes Temp<36 C (96.8 F) or >38.3 C: No SBP <90 or MAP <65 mmHG: No New Acute Mental Status Change: No Is the patient on CPAP, BIPAP,: No Physician Orders Admit (12/23/24 23:08) Allergies (12/23/24 23:08) Code Status (12/23/24 23:08) Sodium Chloride Lock (Saline Lock Ns) (12/24/24 06:00) Sodium Chloride 0.9% (12/23/24 23:15) Complete Blood Count (12/24/24 04:00) Comprehensive Metabolic Panel (12/24/24 04:00) Npo (Nothing By Mouth) Diet (12/24/24 Breakfast) Acetaminophen Tablet (Tylenol Tablet) (12/23/24 23:15) Nitroglycerin Sublingual (Ntrostat Subli (12/23/24 23:15) Morphine Sulfate Injection (12/23/24 23:15) Oxygen By Nasal Cannula (12/23/24 23:08) Stat Ekg For Chest Pain (12/23/24 23:08) Notify Md Of Changes From Base (12/23/24 23:08) Glazing Machine Operator For 24 Hours (12/23/24 23:08) Emergency Dysrhythmia Protocol (12/23/24 23:08) Rhythm Strips Once Every Shift (12/23/24 23:08) Ceftriaxone 1gm/50ml D5w (Rocephin) (12/24/24 10:00) Enalapril Tablet (Vasotec Tablet) (12/24/24 10:00) Mrsa Screen (12/24/24 01:22) Vital Signs Date Time Temp Pulse Resp B/P (MAP) Pulse Ox O2 Delivery O2 Flow Rate FiO2 12/23/24 23:54 80 16 128/76 (93) 97 12/23/24 22:58 98.1 79 14 173/97 (122) 98 98.1 12/23/24 20:33 79 16 128/80 12/23/24 20:30 83 18 98 Room Air* 0 21 12/23/24 20:04 83 18 139/85 12/23/24 19:40 98.2 83 18 139/85 (103) 98 98.2 Laboratory Tests Test 12/23/24 17:15 White Blood Count 11.1 10^3/uL (4.4-10.8) #H Medications Medications Dose Ordered Sig/Martin Route Start Time Stop Time Status Last Admin Dose Admin Ceftriaxone Sodium 50 ml @ 100 mls/hr ONCE ONCE IV 12/23/24 23:15 12/23/24 23:44 DC 12/23/24 23:42 100 MLS/HR Metronidazole 100 ml @ 100 mls/hr ONCE ONCE IV 12/23/24 23:15 12/24/24 00:14 DC 12/24/24 00:10 100 MLS/HR Morphine Sulfate 4 mg ONCE ONCE IV 12/23/24 17:15 12/23/24 17:16 DC 12/23/24 20:04 4 MG Ondansetron HCl 4 mg ONCE ONCE IV 12/23/24 17:15 12/23/24 17:16 DC 12/23/24 20:03 4 MG Sodium Chloride 500 ml @ 500 mls/hr Q1H ONCE IVB 12/23/24 17:15 12/23/24 18:14 DC 12/23/24 20:03 500 MLS/HR Sodium Chloride 1,000 ml @ 60 mls/hr [id number] IV 12/23/24 23:15 12/24/24 00:11 60 MLS/HR Assessment/Plan Assessment/Plan Abdominal pain due to diverticulitis? Constipation/ Acute gastroenteritis? -NPO -IV fluid -morphine -metronidazole and ceftriaxone -CT abdomen pelvis without contrast ordered Hypertension Enalapril Constipation Miralax GI prophylaxis: Pantoprazole DVT prophylaxis: Not indicated Diet: NPO Goals of care discussed with the patient for more than 27 minutes: Full code status Case discussed with , patient and RN Plan discussed with: Patient, Other My Orders Orders - ALYCE,ANGELA RESIDENT Procedure Category Date Status Time Admit ADMIT 12/23/24 Transmitted 23:08 Allergies ZAINAB 12/23/24 In Process 23:08 Code Status CODE 12/23/24 Transmitted 23:08 Sodium Chloride Lock PHA 12/24/24 In Process (Saline Lock Ns) 06:00 Sodium Chloride 0.9% PHA 12/23/24 In Process 23:15 Complete Blood Count LAB 12/24/24 Logged 04:00 Comprehensive LAB 12/24/24 Logged Metabolic Panel 04:00 Npo (Nothing By DIET 12/24/24 Transmitted Mouth) Diet Breakfast Acetaminophen Tablet PHA 12/23/24 In Process (Tylenol Tablet) 23:15 Nitroglycerin PHA 12/23/24 In Process Sublingual (Ntrostat 23:15 Morphine Sulfate PHA 12/23/24 In Process Injection 23:15 Oxygen By Nasal RT 12/23/24 Transmitted Cannula 23:08 Stat Ekg For Chest ZAINAB 12/23/24 In Process Pain 23:08 Notify Of Changes ZAINAB 12/23/24 In Process From Base 23:08 Glazing Machine Operator For ZAINAB 7/29/25 In Process 24 Hours 23:08 Emergency Dysrhythmia ZAINAB 12/23/24 In Process Protocol 23:08 Rhythm Strips Once ZAINAB 12/23/24 In Process Every Shift 23:08 Ceftriaxone 1gm/50ml PHA 12/24/24 In Process D5w (Rocephin) 10:00 Enalapril Tablet PHA 12/24/24 In Process (Vasotec Tablet) 10:00 Mrsa Screen GASTON 12/24/24 Uncollected 01:22 Common Visit Codes: 24898-ODAARPN INP/OBS CARE (HIGH) Secondary Visit Codes: 71719-[id number] CARE PLAN 30 MINUTES ANGELA MEAD RESIDENT Dec 24, 2024 02:23
[2024-12-24] MEDS ORDERED: POLYETHYLENE GLYCOL 17 GM PWDR PO PRN (02:45)
[2024-12-24 07:07] LABS: Hematocrit 39.3 % (36.0-46.0); Hemoglobin 14.0 g/dL (12.2-16.2); Mean Corpuscular Hemoglobin 32.1 pg (28.0-32.0); Mean Corpuscular Volume 90.0 fL (80.0-100.0); Nucleated Red Blood Cells % 0.2 %
[2024-12-24 07:38] LABS: Alanine Aminotransferase 14 U/L (7-40); Albumin 3.9 g/dL (3.2-4.8); Anion Gap 16 (5-15); BUN/Creatinine Ratio 13.6 (10.0-20.0); Calcium 9.7 mg/dL (8.7-10.4); Carbon Dioxide 23 mmol/L (20-31); Chloride 101 mmol/L (98-107); Sodium 140 mmol/L (136-145); Total Protein 6.1 g/dL (5.7-8.2)
[2024-12-24 07:39] LABS: Bilirubin, Total 0.3 mg/dL (0.2-1.0)
[2024-12-24 07:41] LABS: Alkaline Phosphatase 37 U/L (46-116); Blood Urea Nitrogen 8 mg/dL (9-23); Glucose 73 mg/dL (74-106)
[2024-12-24 07:45] LABS: Potassium 2.4 mmol/L (3.5-5.1)
[2024-12-24] MEDS: PANTOPRAZOLE 40 MG/10 ML VIAL INJ IV SCH (09:35)
[2024-12-24] MEDS: cefTRIAXone 1GM/50ML D5W 50 ML IV SCH (09:36)
[2024-12-24] MEDS: ENALAPRIL MALEATE 10 MG TAB PO SCH (09:36)
--- NOTE | 2024-12-24 09:39 | DVH ---
Exam: CT CT AB PEL WO CON-NO ORAL OR IV History: Abdominal pain Comparison Study: CT CT AB PEL WO CON-NO ORAL OR IV on DOS: 12/23/24, CT CT AB PEL WO CON-NO ORAL OR I V on DOS: 12/16/24, CT ABD PELVIS WO CONTRAST on DOS: 10/22/21 Technique: Multidetector spiral CT of the abdomen was performed from lung bases to pubic symphysis. I maging was performed without IV contrast. Axial, coronal and sagittal multiplanar reformats were obta ined from the axial data set by the technologist. Radiation Dose : 1. Abdomen/Pelvis: CTDIvol 5.1 mGy, DLP 3.92 mGy*cm. Findings: Evaluation of solid organs is limited due to lack of intravenous contrast use. Lung Bases: Moderate emphysema. Dependent atelectasis. Liver: The liver is normal in size. No focal lesions. Gallbladder and Biliary Tree: Unremarkable Spleen: Unremarkable Pancreas: The pancreas is grossly normal in appearance. Adrenal Glands: Unremarkable Kidneys: No hydronephrosis. Few punctate bilateral nonobstructing renal stones measuring up to 0.1 c m. Bladder: Grossly unremarkable for degree of distention. Bowel: Small hiatal hernia. Moderate volume colonic stool. Normal appendix is visualized in the right lower quadrant without findings of appendicitis. Ascites: Absent Lymphadenopathy: No mesenteric, retroperitoneal or periportal lymphadenopathy. Abdominal Wall and Mesentery: Unremarkable. Vasculature: The visualized abdominal aorta is normal in size and caliber. Evaluation of abdominal a nd pelvic vessels is limited due to lack of intravenous contrast. Pelvic Organs: Unremarkable Musculoskeletal: No aggressive focal bony lesions, acute fractures or dislocation. Degenerative barnes es of the spine. Degenerative changes of bilateral hips. IMPRESSION: Moderate volume colonic stool. Few punctate bilateral nonobstructing renal stones measuring up to 0.1 cm.
[2024-12-24] MEDS: POTASSIUM CHLORIDE 40 MEQ, LIDOCAINE 1% (LOCAL ANESTH.) 4 ML in SODIUM CHL 0.9% 250 ML IV ONE (11:45)
--- NOTE | 2024-12-24 11:56 | DVHPN2 ---
Subjective The patient is seen and examined at bedside. Still complain of abdominal pain. Reviewed: Care Plan, H&P, Labs, Medications, Previous Orders, Radiology Changes from previous H/P or p: No Changes Gastrointestinal: Abdominal Pain Objective Vitals Vital Signs Date Time Temp Pulse Resp B/P (MAP) Pulse Ox O2 Delivery O2 Flow Rate FiO2 12/24/24 09:36 126/87 12/24/24 09:00 97.6 65 18 96 97.6 12/24/24 01:04 Room Air* 0 21 General Appearance: Alert, Oriented X3, Cooperative, mild distress HEENT: Atraumatic, PERRLA, EOMI, Mucous membr. moist/pink Neck: Supple Lungs: Clear to auscultation, Normal air movement Cardiovascular: Regular rate, Normal S1, Normal S2, No murmurs, Gallops, Rubs Abdomen: Normal bowel sounds, Soft, No tenderness Neuro: Cranial nerves 3-12 NL Psych/Mental Status: Mental status NL Medications Current Medications Medications Dose Ordered Sig/Martin Route Start Time Stop Time Status Last Admin Dose Admin Sodium Chloride 10 ml Q8HR IV 12/24/24 06:00 Sodium Chloride 1,000 ml @ 60 mls/hr [id number] IV 12/23/24 23:15 12/24/24 00:11 60 MLS/HR Acetaminophen 650 mg Q6HP PRN PO 12/23/24 23:15 Nitroglycerin 0.4 mg Q5MINP PRN SL 12/23/24 23:15 Morphine Sulfate 2 mg Q30M PRN IV 12/23/24 23:15 Ceftriaxone Sodium 50 ml @ 100 mls/hr DAILY IV 12/24/24 10:00 12/24/24 09:36 100 MLS/HR Enalapril Maleate 10 mg DAILY PO 12/24/24 10:00 12/24/24 09:36 10 MG Polyethylene Glycol 17 gm DAILYPRN PRN PO 12/24/24 02:45 Pantoprazole Sodium 40 mg DAILY IV 12/24/24 10:00 12/24/24 09:35 40 MG Enoxaparin Sodium 40 mg DAILY SC 12/25/24 10:00 Laboratory Results Laboratory Tests 12/24/24 06:00 Chemistry Test 12/23/24 17:15 12/24/24 06:00 Albumin 5.1 g/dL (3.2-4.8) H 3.9 g/dL (3.2-4.8) Calcium Level 11.4 mg/dL (8.7-10.4) H 9.7 mg/dL (8.7-10.4) Total Protein 8.0 g/dL (5.7-8.2) 6.1 g/dL (5.7-8.2) LFT Test 12/23/24 17:15 12/24/24 06:00 Alanine Aminotransferase (ALT) 20 U/L (7-40) 14 U/L (7-40) Alkaline Phosphatase 51 U/L (46-116) 37 U/L (46-116) L Aspartate Amino Transferase (AST) 28 U/L (13-40) 21 U/L (13-40) Total Bilirubin 0.5 mg/dL (0.2-1.0) 0.3 mg/dL (0.2-1.0) Urinalysis Test 12/23/24 17:54 Urine Color Light-yellow (Yellow) Urine Clarity Clear (Clear) Urine pH 6.0 (5.0-9.0) Urine Specific [place] 1.010 (1.001-1.035) Urine Protein Negative (Negative) Urine Ketones 3+ (Negative) H Urine Blood Trace /uL (Negative) H Urine Nitrite Negative (Negative) Urine Bilirubin Negative (Negative) Urine Urobilinogen Normal mg/dL (Negative) Urine Leukocyte Esterase Negative /uL (Negative) Urine RBC 1 /hpf (0 - 4) Urine Microscopic WBC 2 /HPF (0-5) Urine Squamous Epithelial Cells Few /hpf (<5) Urine Bacteria None seen /hpf (None Seen) Urine Glucose Normal mg/dL (Normal) Labs and/or images reviewed: Labs reviewed by me Assessment/Plan Assessment/Plan Abdominal pain possible secondary to Constipation/ Acute gastroenteritis? -advance diet to clear liquid diet -IV fluid -morphine -continuing metronidazole and ceftriaxone -CT abdomen pelvis without contrast showed : Moderate volume colonic stool. Few punctate bilateral nonobstructing renal stones measuring up to 0.1 cm. Hypertension Continuing Enalapril Constipation Continuing Miralax GI prophylaxis: Pantoprazole DVT prophylaxis: Not indicated This medical document was created using an electronic medical record system with [employer] direct computerized dictation system. Although this document has been carefully reviewed, there may still be some phonetic and typographical errors. These areas are purely typographical due to imperfections of the software programs, and do not reflect any compromise in the patient's medical care. Plan discussed with: Patient My Orders Orders - JUNG GALLEGO MD Procedure Category Date Status Time Potassium Chloride PHA 12/24/24 In Process (Potassium Chloride). 11:45 Enoxaparin Sodium PHA 12/25/24 In Process (Lovenox) 10:00 Date of Service: Dec 24, 2024 Billing Provider: JUNG GALLEGO MD Common Visit Codes: [id number] INP/OBS CARE(HIGH) JUNG GALLEGO MD Dec 24, 2024 11:56
[2024-12-24] MEDS: ACETAMINOPHEN 325 MG TAB PO PRN (12:12)
[2024-12-24] MEDS: SODIUM CHLOR 0.9% PF (SALINE LOCK) 10ML VIAL/SYR IV SCH (13:05)
[2024-12-24] MEDS: TEMAZEPAM 15 MG CAP PO PRN (22:33)
[2024-12-25 01:00] VITALS: BP 129/75; PULSE 67; RESP 15; TEMP 97.8; O2SAT 97
[2024-12-25] MEDS: KETOROLAC TROMETH 30 MG/ML 1ML VIAL IV ONE (02:16)
[2024-12-25 05:00] VITALS: BP 132/79; PULSE 64; RESP 17; TEMP 98; O2SAT 100
[2024-12-25 08:25] VITALS: PULSE 66; RESP 18; O2SAT 98
[2024-12-25 10:00] VITALS: BP 137/85; PULSE 66; RESP 18; TEMP 98.4; O2SAT 99
[2024-12-25] MEDS: ENOXAPARIN SOD 40 MG/0.4 ML SYRINGE SC SCH (10:11)
--- NOTE | 2024-12-25 11:48 | DVHPN2 ---
Subjective The patient is seen and examined at bedside. Still complain of abdominal pain. Reviewed: Care Plan, H&P, Labs, Medications, Previous Orders, Radiology Gastrointestinal: Abdominal Pain Objective Vitals Vital Signs Date Time Temp Pulse Resp B/P (MAP) Pulse Ox O2 Delivery O2 Flow Rate FiO2 12/25/24 10:12 137/85 12/25/24 10:00 98.4 66 18 99 98.4 12/25/24 08:25 Room Air* 0 21 Intake/Output Intake and Output 12/25/24 07:00 Intake Total 854 ml Balance 854 ml Intake Oral 530 ml IV Total 324 ml # Voids 9 # Bowel Movements 1 General Appearance: Alert, Oriented X3, Cooperative, mild distress HEENT: Atraumatic, PERRLA, EOMI, Mucous membr. moist/pink Neck: Supple Lungs: Clear to auscultation, Normal air movement Cardiovascular: Regular rate, Normal S1, Normal S2, No murmurs, Gallops, Rubs Abdomen: Normal bowel sounds, Soft, No tenderness Neuro: Cranial nerves 3-12 NL Psych/Mental Status: Mental status NL Medications Current Medications Medications Dose Ordered Sig/Martin Route Start Time Stop Time Status Last Admin Dose Admin Sodium Chloride 10 ml Q8HR IV 12/24/24 06:00 12/25/24 10:14 10 ML Sodium Chloride 1,000 ml @ 60 mls/hr [id number] IV 12/23/24 23:15 12/24/24 00:11 60 MLS/HR Acetaminophen 650 mg Q6HP PRN PO 12/23/24 23:15 12/24/24 21:30 650 MG Nitroglycerin 0.4 mg Q5MINP PRN SL 12/23/24 23:15 Morphine Sulfate 2 mg Q30M PRN IV 12/23/24 23:15 Ceftriaxone Sodium 50 ml @ 100 mls/hr DAILY IV 12/24/24 10:00 12/25/24 10:11 100 MLS/HR Enalapril Maleate 10 mg DAILY PO 12/24/24 10:00 12/25/24 10:12 10 MG Polyethylene Glycol 17 gm DAILYPRN PRN PO 12/24/24 02:45 Pantoprazole Sodium 40 mg DAILY IV 12/24/24 10:00 12/25/24 10:09 40 MG Enoxaparin Sodium 40 mg DAILY SC 12/25/24 10:00 12/25/24 10:11 40 MG Temazepam 30 mg QHSP PRN PO 12/24/24 13:00 12/24/24 22:33 30 MG Laboratory Results Laboratory Tests 12/24/24 06:00 Urinalysis Test 12/23/24 17:54 Urine Color Light-yellow (Yellow) Urine Clarity Clear (Clear) Urine pH 6.0 (5.0-9.0) Urine Specific [place] 1.010 (1.001-1.035) Urine Protein Negative (Negative) Urine Ketones 3+ (Negative) H Urine Blood Trace /uL (Negative) H Urine Nitrite Negative (Negative) Urine Bilirubin Negative (Negative) Urine Urobilinogen Normal mg/dL (Negative) Urine Leukocyte Esterase Negative /uL (Negative) Urine RBC 1 /hpf (0 - 4) Urine Microscopic WBC 2 /HPF (0-5) Urine Squamous Epithelial Cells Few /hpf (<5) Urine Bacteria None seen /hpf (None Seen) Urine Glucose Normal mg/dL (Normal) Microbiology Microbiology Date/Time Source Procedure Growth Status 12/24/24 05:50 Nose MRSA Screen - Final Complete Assessment/Plan Assessment/Plan Abdominal pain possible secondary to Constipation/ Acute gastroenteritis? -advance diet to clear liquid diet -IV fluid -morphine -continuing metronidazole and ceftriaxone -CT abdomen pelvis without contrast showed : Moderate volume colonic stool. Few punctate bilateral nonobstructing renal stones measuring up to 0.1 cm. Hypertension Continuing Enalapril Constipation Continuing Miralax GI prophylaxis: Pantoprazole DVT prophylaxis: Not indicated This medical document was created using an electronic medical record system with [employer] direct computerized dictation system. Although this document has been carefully reviewed, there may still be some phonetic and typographical errors. These areas are purely typographical due to imperfections of the software programs, and do not reflect any compromise in the patient's medical care. My Orders Orders - JUNG GALLEGO MD Procedure Category Date Status Time Clear Liq Diet DIET 12/24/24 Transmitted Lunch Temazepam (Restoril) PHA 12/24/24 In Process 13:00 JUNG GALLEGO MD Dec 25, 2024 11:48
[2024-12-25 13:00] VITALS: BP 137/95; PULSE 74; RESP 16; TEMP 97.7; O2SAT 98
--- NOTE | 2024-12-25 13:21 | DVHDS2 ---
Discharge Summary Date of Admission Dec 23, 2024 at 23:08 Date of Discharge: Dec 25, 2024 Admitting Diagnosis Abdominal pain possible secondary to Constipation/ Acute gastroenteritis? Nephrolithiasis Hypertension Constipation Labs/Diagnostic Data: Laboratory Results Test 12/24/24 06:00 12/23/24 17:54 White Blood Count 6.8 10^3/uL (4.4-10.8) Red Blood Count 4.36 10^6/uL (4.0-5.20) Hemoglobin 14.0 g/dL (12.2-16.2) Hematocrit 39.3 % (36.0-46.0) Mean Corpuscular Volume 90.0 fL (80.0-100.0) Mean Corpuscular Hemoglobin 32.1 pg (28.0-32.0) Mean Corpuscular Hemoglobin Concent 35.6 g/dL (32.0-36.0) Red Cell Distribution Width 13.1 % (11.8-14.3) Platelet Count 367 10^3/uL (140-450) Mean Platelet Volume 7.4 fL (6.9-10.8) Neutrophils (%) (Auto) 66.8 % (37.0-80.0) Lymphocytes (%) (Auto) 23.4 % (10.0-50.0) Monocytes (%) (Auto) 7.9 % (0.0-12.0) Eosinophils (%) (Auto) 1.1 % (0.0-7.0) Basophils (%) (Auto) 0.8 % (0.0-2.0) Neutrophils # (Auto) 4.5 10 ^3/uL (1.6-8.6) Lymphocytes # (Auto) 1.6 10 ^3/uL (0.4-5.4) Monocytes # (Auto) 0.5 10 ^3/uL (0-1.3) Eosinophils # (Auto) 0.1 10 ^3/uL (0-0.8) Basophils # (Auto) 0.1 10 ^3/uL (0-0.2) Nucleated Red Blood Cells 0.2 % Sodium Level 140 mmol/L (136-145) Potassium Level 2.4 mmol/L (3.5-5.1) Chloride Level 101 mmol/L (98-107) Carbon Dioxide Level 23 mmol/L (20-31) Anion Gap 16 (5-15) Blood Urea Nitrogen 8 mg/dL (9-23) Creatinine 0.59 mg/dL (0.550-1.02) Glomerular Filtration Rate Calc 95 mL/min (>90) BUN/Creatinine Ratio 13.6 (10.0-20.0) Serum Glucose 73 mg/dL (74-106) Calcium Level 9.7 mg/dL (8.7-10.4) Total Bilirubin 0.3 mg/dL (0.2-1.0) Aspartate Amino Transferase (AST) 21 U/L (13-40) Alanine Aminotransferase (ALT) 14 U/L (7-40) Alkaline Phosphatase 37 U/L (46-116) Total Protein 6.1 g/dL (5.7-8.2) Albumin 3.9 g/dL (3.2-4.8) Urine Color Light-yellow (Yellow) Urine Clarity Clear (Clear) Urine pH 6.0 (5.0-9.0) Urine Specific [place] 1.010 (1.001-1.035) Urine Protein Negative (Negative) Urine Ketones 3+ (Negative) Urine Blood Trace /uL (Negative) Urine Nitrite Negative (Negative) Urine Bilirubin Negative (Negative) Urine Urobilinogen Normal mg/dL (Negative) Urine Leukocyte Esterase Negative /uL (Negative) Urine RBC 1 /hpf (0 - 4) Urine Microscopic WBC 2 /HPF (0-5) Urine Squamous Epithelial Cells Few /hpf (<5) Urine Bacteria None seen /hpf (None Seen) Urine Glucose Normal mg/dL (Normal) Other Laboratory Tests 12/24/24 06:00 Brief Hx & Hospital Course: This is a 74 years old female with past medical history of GERD, diverticulitis, kidney stone come to emergency department because left lower abdominal pain for three weeks. According to her pain is constant gradually onset, nonradiating and rated 6/10. She has been admitted to the hospital one week ago with diverticulitis. She reports having constipation for last couple day before the intractable pain episode started. She reports having voice IX and banana worsened her pain. She denied any associated diarrhea, nausea, vomiting with abdominal pain. She said she had no appetite because she afraid if she eats abdominal pain come back. She was admitted. Workup was done. CT scan only showed constipation. The patient was given Protonix and also MiraLax. The patient is able to move bowel movement. Abdominal pain improved. I am going to discharge him home. I advised her to follow up with GI specialist for a colonoscopy three months down [address] road because she just had diverticulitis. Advised her to take Bentyl to see if her abdominal pain and spasm improved. Patient may have an diagnosis irritable bowel syndrome. Follow up with primary care physician 1-2 weeks. Follow up with GI specialist per schedule. Physical examination: HEENT: Normocephalic atraumatic pupils equal react to light and accommodation. Extraocular muscles intact, conjunctiva pink, oropharynx moist, no thrush, no exudate. Lymphatic: No lymphadenopathy Cardiovascular exam: S1, S2 was heard. No murmurs, rubs, gallops Lung: Clear on auscultation bilaterally, no wheeze, rale, rhonchi. GI: Abdominal soft, nondistended, nontenderness, positive bowel sounds. Extremity: No crepitus, cyanosis, edema. Pedal pulses present bilateral. Full range of motion. Skin: Normal turgor, no rash. Psych: Alert, oriented x3. Neurology: No focal deficits, cranial nerve II to XII grossly intact. This medical document was created using an electronic medical record system with [employer] direct computerized dictation system. Although this document has been carefully reviewed, there may still be some phonetic and typographical errors. These areas are purely typographical due to imperfections of the software programs, and do not reflect any compromise in the patient's medical care. A Condition at Discharge: Stable Final Diagnosis/Problems List Abdominal pain possible secondary to Constipation/ Acute gastroenteritis? Nephrolithiasis Hypertension Constipation Discharge Disposition: Home Discharge Instruct/Medications Scheduled Dicyclomine Hcl (Dicyclomine Hcl), 10 MG PO QID Enalapril Maleate (Vasotec Tablet), 1 TAB PO DAILY, (Reported) Hydrochlorothiazide (Hydrochlorothiazide), 25 MG PO DAILY, (Reported) Pantoprazole Sodium Sesquihydr (Pantoprazole Sodium Dr), 20 MG PO DAILY, (Reported) Temazepam (Temazepam), 1 CAP PO QPM, (Reported) Discharge Statement: "Patient was advised to return to the ER or call 911 if any headaches, dizziness, shortness of breath, chest pain, abdominal pain, bleeding, fevers, or worsening of medical condition. Patient was counseled about treatment plan, medications, possible side effects, patientverbalized understanding. All questions were answered to the best of my ability. This discharge took greater then 30 minutes in planning, reviewing documentation, counseling the patient, and discussing with other team members." ASSESSMENT ASSESSMENT Assessment Date of Service: Dec 25, 2024 Billing Provider: JUNG GALLEGO MD Common Visit Codes: [id number] DISCH DAY >30min JUNG GALLEGO MD Dec 25, 2024 13:21
[2024-12-25] MEDS ORDERED: DICY-89 PO (13:22)
[2024-12-25 15:42] VITALS: BP 137/85; PULSE 74; RESP 16; TEMP 97.7; O2SAT 98
== END 2024-12-25 16:17 | disposition home or self-care (01) | DRG 392 ==
LOC: ER 16:17 → OVERFLOW 23:08 → WEST WING 23:11
PROVIDERS: ADMIT Internal Medicine; ATTEND Internal Medicine
DX: K52.9 Noninfective gastroenteritis and colitis, unspecified (principal); K59.00 Constipation, unspecified; I10 Essential (primary) hypertension; N20.0 Calculus of kidney; K21.9 Gastro-esophageal reflux disease without esophagitis; Z87.442 Personal history of urinary calculi
CPT/HCPCS: 36415; 74176; 80053; 81001; 85025; 87081; 96374; G0378; J1885; J2003; J2405; J2470; J3490

== ENCOUNTER 2025-04-20 07:11 | Outpatient (CLI) | payer OTHER ==
[~2025-04-20 07:11] MED LIST changes: -CIPR500T4 PO; -POTA-36 PO
== END 2025-04-20 17:00 | disposition home or self-care (01) ==
LOC: LAB 07:11
PROVIDERS: ATTEND Internal Medicine
DX: E83.52 Hypercalcemia (principal); J44.9 Chronic obstructive pulmonary disease, unspecified; K57.90 Diverticulosis of intestine, part unspecified, without perforation or abscess without bleeding
CPT/HCPCS: 82270